=== PATIENT | male | born 1980 | race Caucasian/White ===

== ENCOUNTER 2020-10-26 16:02 | Outpatient (CLI) | payer MEDICAID, SELFPAY ==
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
== END 2020-10-26 16:03 | disposition home or self-care (01) ==
PROVIDERS: PCP Family Medicine; Visit Provider Nurse Practitioner Family
DX: M47.896 Other spondylosis, lumbar region (principal)
CPT/HCPCS: 72128; 72131

== ENCOUNTER 2020-11-17 11:13 | Emergency (ER) | payer MEDICAID, SELFPAY ==
[2020-11-17 11:33] VITALS: BP 161/100; PULSE 94; RESP 18; TEMP 36.2; O2SAT 96
[2020-11-17] MEDS: SODIUM CHLORIDE 0.9% IV 1,000 ML 999 ML IV CONT (13:07)
--- NOTE | 2020-11-17 13:08 | ED.WEAKNESS ---
HPI - Weakness General Chief complaint: Weakness Stated complaint: multiple complaints/pain/sores Time Seen by Provider: 11/17/20 12:54 Source: patient Mode of arrival: ambulatory Limitations: no limitations History of Present Illness HPI Narrative: Patient is a 40-year-old male complaining of generalized weakness, I am dehydrated that started approximately 3 days ago. Patient also complaining of pressure sores on his bilateral lower extremity that has been going on for the past 4 to 5 weeks, has seen his doctor for it. Patient states he just got a fdc. Patient denies any headache, chest pain, shortness of breath, abdominal pain, nausea, vomiting, diarrhea, fever or chills. Related Data Home Medications Medication Instructions Recorded Confirmed amlodipine 11/17/20 11/17/20 baclofen mg 11/17/20 buspirone mg 11/17/20 duloxetine mg PO 11/17/20 gabapentin 11/17/20 hydrocodone-acetaminophen 11/17/20 oxybutynin chloride 11/17/20 trazodone 11/17/20 Allergies Allergy/AdvReac Type Severity Reaction Status Date / Time Penicillins Allergy Unknown Unknown Verified 11/17/20 11:37 Review of Systems Review of Systems: All systems reviewed & are unremarkable except as noted in HPI and below Constitutional: Constitutional: Denies body ache(s), Denies chills, Denies excessive sweating, Denies fatigue, Denies fever(s), Denies headache(s), Denies lethargy, Denies malaise and Denies weight loss Eyes: Eyes: Denies blurry vision, Denies change in vision and Denies loss of vision ENT: Denies dizziness, Denies ear discharge, Denies headache(s), Denies lip swelling, Denies epistaxis, Denies nasal congestion, Denies neck pain, Denies throat swelling and Denies tongue swelling Cardiovascular: Cardiovascular: Denies chest pain, Denies chest pain at rest, Denies chest pain with activity, Denies diaphoresis, Denies rapid heart rate, Denies edema, Denies irregular heart rhythm, Denies lightheadedness, Denies palpitations, Denies dyspnea and Denies dyspnea on exertion Respiratory: Respiratory: Denies chest congestion, Denies cough, Denies hemoptysis, Denies dyspnea and Denies dyspnea on exertion Gastrointestinal: Gastrointestinal: Denies abdominal pain, Denies melena, Denies hematochezia, Denies diarrhea, Denies nausea, Denies vomiting and Denies hematemesis Musculoskeletal: Musculoskeletal: Denies abnormal gait, Denies deformity, Denies joint swelling, Denies limited range of motion, Denies neck pain and Denies numbness Neurologic: Denies Abnormal speech present, Denies abnormal gait, Denies confusion, Denies dizziness, Denies headache(s), Denies focal weakness, Denies loss of vision, Denies numbness, Denies Other visual disturbances and Denies Sensory deficit (Neuro) Psychiatric: Psychiatric: Denies confusion, Denies depression, Denies auditory hallucinations, Denies homicidal ideation and Denies suicidal ideation Endocrine: Endocrine: Denies cold intolerance, Denies excessive sweating, Denies fatigue, Denies heat intolerance and Denies palpitations Hematologic/Lymphatic: Hematologic/Lymphatic: Denies easy bleeding and Denies easy bruising Allergic/Immunologic: Allergic/Immunologic: Denies lip swelling, Denies throat swelling and Denies tongue swelling PMFSH Social History Social History Smoking status: Smoker, status unknown Alcohol intake: current Gender identity (if verbalized by the patient): Male Comments Past medical history: Hypertension, hepatitis C, chronic pain Family history: Noncontributory Social history: Smoker, occasional EtOH use, no drug use Exam Const: General: cooperative, comfortable, no acute distress, well developed, alert and awake; No confusion Orientation/consciousness: oriented to person, oriented to place, oriented to time, patient oriented x3 and No confusion Limitations: no limitations HENMT: Head: normal to inspection, normocephalic
[2020-11-17 13:15] LABS: Basophils Percent Auto 0.3 % (0.2-1.2); Eosinophils Absolute Auto 0.1 K/mm3 (0-0.3); Eosinophils Percent Auto 0.5 % (0-4.4); Hematocrit 54.6 % (42.0-52.0); Hemoglobin 18.4 g/dL (14.0-18.0); Immature Granulocyte Absolute 0.05 K/mm3 (0.00-0.031); Immature Granulocyte Percent A 0.5 % (0-0.5); Lymphocytes Percent Auto 18.1 % (18.3-44.2); Mean Corpuscular HGB Conc 33.7 g/dl (32-36); Mean Corpuscular Hemoglobin 29.4 pg (26-34); Mean Corpuscular Volume 87.2 fl (80-100); Mean Platelet Volume 9.7 fl (7.4-10.4); Monocytes Absolute Auto 0.8 K/mm3 (0.1-0.6); Monocytes Percent Auto 8.7 % (2.6-8.5); Neutrophils Absolute Auto 6.7 K/mm3 (1.3-6.7); Neutrophils Percent Auto 71.9 % (45.5-73.1); Platelet Count Result 289 k/mm3 (150-375); Red Blood Count 6.26 M/mm3 (4.6-6.20); Red Cell Distribution Width 13.2 % (11.5-14.5); White Blood Count 9.4 K/mm3 (4.5-10.0)
[2020-11-17 13:29] LABS: Alanine Aminotransferase 77 U/L (4-50); Albumin Level 4.6 g/dL (3.5-5.1); Alkaline Phosphatase 85 U/L (38-126); Anion Gap 10 mmol/L (8-16); Aspartate Amino Transferase 61 U/L (17-59); Bilirubin,Total 0.9 mg/dL (0.2-1.3); Blood Urea Nitrogen 11 mg/dL (9-20); Calcium 9.8 mg/dL (8.4-10.2); Carbon Dioxide 25 mmol/L (22-30); Chloride 104 mmol/L (98-107); Estimated Glomerular Filt Rate > 60; Glucose 94 mg/dL (75-110); Potassium 4.3 mmol/L (3.4-5.0); Sodium 139 mmol/L (137-145)
[2020-11-17] MEDS: KETOROLAC 30 MG/ML VIAL (*BKC) IV PUSH (15:50)
[2020-11-17 15:56] VITALS: BP 157/90; PULSE 90; RESP 18; TEMP 36.9; O2SAT 100
== END 2020-11-17 15:57 | disposition home or self-care (01) ==
PROVIDERS: Emergency Provider Emergency Medicine
DX: E86.0 Dehydration (principal); L98.8 Other specified disorders of the skin and subcutaneous tissue; I10 Essential (primary) hypertension; G89.29 Other chronic pain; Z86.19 Personal history of other infectious and parasitic diseases
CPT/HCPCS: 36415; 80053; 85025; 96361; 96374; 99284; J1885; J7030

== ENCOUNTER 2020-11-19 15:33 | Inpatient (IN) | payer MEDICARE, MEDICAID, SELFPAY ==
[2020-11-19] VITALS (40 sets, daily range): BP systolic 114–179; BP diastolic 73–109; PULSE 112–146; RESP 0–42; TEMP 36.9–38.3; O2SAT 94–100; BMI 24.8
--- NOTE | ~2020-11-19 | XR_ITS ---
EXAMINATION: XR chest 1V portable INDICATION: Fever TECHNIQUE: Portable AP chest at 1723 hours COMPARISON: 05/22/2011 FINDINGS: The lungs are free of acute opacities. There is no pleural effusion or pneumothorax. The ca rdiomediastinal silhouette is normal. The visualized osseous structures are unremarkable. IMPRESSION: 1. No acute cardiopulmonary abnormality. Reviewed, dictated and finalized at location B.
--- NOTE | ~2020-11-19 | US_ITS ---
EXAMINATION: US abdomen limited EXAM DATE: 11/23/2020 11:39 INDICATION: Elevated liver enzymes and Hepatitis C viral load. TECHNIQUE: Multiple grayscale and Doppler images of the abdomen right upper quadrant were obtained (b y a technologist who performed the scan) and subsequently reviewed. There is no prior study for [place]. FINDINGS: The pancreatic head and body are normal in appearance. The pancreatic tail is not visualized. The l iver has normal echogenicity and contour. There are no focal liver lesions identified. There is no evidence of intrahepatic biliary duct dilation. Portal venous flow was seen in the hepatopedal, nor mal direction and has normal Doppler waveform. No right-sided hydronephrosis. Common bile duct measures 4 mm, which is normal. The gallbladder wall is normal in thickness, with ex pected amount of distention. No sonographic evidence of pericholecystic fluid. There is no cholelit hiases. Technologist performing exam reports patient did not demonstrate sonographic Cruz's sign. Please note that this sign is less reliable in patients who have received pain medication. IMPRESSION: 1. Unremarkable abdominal ultrasound exam. Reviewed, dictated and finalized at location A.
--- NOTE | ~2020-11-19 | CT_ITS ---
EXAMINATION: CT brain wo con DATE: 11/19/2020 20:22 INDICATION: Altered mental state TECHNIQUE: Computed tomography (CT) of the head was performed without intravenous contrast. The mA wa s adjusted according to patient size. Iterative reconstruction technique was employed. Exam dose: 60 5.33 mGy-cm total exam DLP. COMPARISON: None FINDINGS: No intracranial mass lesion or hemorrhage or cerebrovascular accident is evident. There is no midline shift or mass effect effect. Normal ventricular size. Normal patterson-white matter differentiation. No subdural or epidural hematoma is detected. No fracture or bone destruction of the cranial vault. Included paranasal sinuses and mastoid air cells are normally developed and aerated. IMPRESSION: No significant abnormality Reviewed, dictated and finalized at Location A. Reviewed, dictated and finalized at location A. IMPRESSION: No significant abnormality
--- NOTE | 2020-11-19 15:35 | ECG_ITS ---
Measurements Intervals [place] Rate: 140 P: 79 LA: 127 QRS: 63 QRSD: 94 T: 50 QT: 287 QTc: 439 Interpretive Statements SINUS TACHYCARDIA DELAYED PRECORDIAL R/S TRANSITION BASELINE ARTIFACT- II, III, AVR, AVF, V1, V4-V6 ABNORMAL ECG Electronically Signed On 11-19-2020 15:57:44 CDT by Steve Boyle D.O.
[2020-11-19 15:57] LABS: Glucose Point of Care 84 (65-105)
[2020-11-19 16:09] LABS: Basophils Absolute Auto 0.1 K/mm3 (0.0-0.1); Basophils Percent Auto 0.4 % (0.2-1.2); Eosinophils Percent Auto 0.2 % (0-4.4); Hematocrit 48.4 % (42.0-52.0); Hemoglobin 16.8 g/dL (14.0-18.0); Immature Granulocyte Absolute 0.05 K/mm3 (0.00-0.031); Immature Granulocyte Percent A 0.4 % (0-0.5); Lymphocytes Absolute Auto 1.49 K/mm3 (0.9-3.2); Lymphocytes Percent Auto 10.9 % (18.3-44.2); Mean Corpuscular HGB Conc 34.7 g/dl (32-36); Mean Corpuscular Hemoglobin 29.2 pg (26-34); Mean Corpuscular Volume 84.2 fl (80-100); Mean Platelet Volume 10.3 fl (7.4-10.4); Monocytes Absolute Auto 1.2 K/mm3 (0.1-0.6); Neutrophils Absolute Auto 10.8 K/mm3 (1.3-6.7); Neutrophils Percent Auto 79.1 % (45.5-73.1); Platelet Count Result 312 k/mm3 (150-375); Red Blood Count 5.75 M/mm3 (4.6-6.20); Red Cell Distribution Width 12.8 % (11.5-14.5); White Blood Count 13.6 K/mm3 (4.5-10.0)
[2020-11-19 16:29] LABS: Alanine Aminotransferase 91 U/L (4-50); Albumin Level 4.6 g/dL (3.5-5.1); Alkaline Phosphatase 73 U/L (38-126); Anion Gap 11 mmol/L (8-16); Aspartate Amino Transferase 145 U/L (17-59); Bilirubin,Total 1.4 mg/dL (0.2-1.3); Blood Urea Nitrogen 24 mg/dL (9-20); Calcium 9.6 mg/dL (8.4-10.2); Carbon Dioxide 22 mmol/L (22-30); Chloride 105 mmol/L (98-107); Estimated Glomerular Filt Rate > 60; Glucose 81 mg/dL (75-110); Potassium 4.6 mmol/L (3.4-5.0); Sodium 138 mmol/L (137-145)
[2020-11-19] MEDS: LORazepam INJ (*CRX) 2 MG/ML VIAL IV PUSH (16:30)
--- NOTE | 2020-11-19 16:41 | ED.GENADULT ---
HPI - General Adult General Chief complaint: Altered Mental Status Stated complaint: combative Time Seen by Provider: 11/19/20 16:04 Source: EMS History of Present Illness HPI narrative: Patient is a 40 y/o male brought in by EMS for altered mental status. Patient is reportedly confused and combative. EMS reports that patient may have used Meth and Marijuana. Patient is unable to provide addtional history. Related Data Home Medications Medication Instructions Recorded Confirmed amlodipine 11/17/20 11/17/20 baclofen mg 11/17/20 buspirone mg 11/17/20 duloxetine mg PO 11/17/20 gabapentin 11/17/20 hydrocodone-acetaminophen 11/17/20 oxybutynin chloride 11/17/20 trazodone 11/17/20 Allergies Allergy/AdvReac Type Severity Reaction Status Date / Time Penicillins Allergy Unknown Unknown Verified 11/17/20 11:37 Review of Systems Review of Systems: ROS unobtainable: Yes unobtainable due to mental status PMFSH Social History Social History Smoking status: Smoker, status unknown Alcohol intake: current Gender identity (if verbalized by the patient): Male Exam Const: General: no acute distress and well developed Orientation/consciousness: confusion and Other orientation findings (agitated) HENMT: Head: normocephalic Ears: external ears normal General nose exam: Normal external nose present Eyes: General: appearance normal, both eyes and all related structures Conjunctivae: conjunctivae normal Neck: Neck: normal visual inspection and full ROM Chest: Chest palpation & inspection: normal inspection of the chest and no tenderness Resp: Effort & Inspection: normal respiratory effort Auscultation: clear to auscultation bilaterally Cardio: Rate: tachycardic Rhythm: regular rhythm GI: GI Palp: No abdominal tenderness and Yes Soft to palpation Skin: General skin exam: normal color and turgor normal Lesions: lesion noted (multiple sores on legs likely self inflicated) Neuro: General: confusion Cognition (Neuro): abnormal cognition Motor exam (neuro): Other motor observations present (paraplegic) Extrem: General: normal to inspection, full ROM and no pedal edema Psych: Appearance: grossly normal Affect: Labile affect present and Anxious affect present Course Reevaluation(s) Reevaluation #1: Rechecked. Patient is more awake. He is answering questions appropriately. Date: 11/19/20 Time: 21:30 Consultations Consultation #1: Discussed with COMMERCIAL INTELLIGENCE MANAGER Lissa, who agrees to admit. Date: 11/19/20 Time: 21:01 Vital Signs Vital signs: Vital Signs Temperature 38.3 C H 11/19/20 15:36 Pulse Rate 138 H 11/19/20 15:36 Respiratory Rate 18 11/19/20 15:36 Blood Pressure 133/96 H 11/19/20 15:36 Pulse Oximetry 100 11/19/20 15:36 Temperature 37.2 C 11/19/20 21:16 Pulse Rate 112 H 11/19/20 21:16 Respiratory Rate 14 11/19/20 21:16 Blood Pressure 148/89 H 11/19/20 21:16 Pulse Oximetry 98 11/19/20 21:16 Medical Decision Making Vital Signs Vital Signs: Vital Signs Temperature 38.3 C H 11/19/20 15:36 Pulse Rate 138 H 11/19/20 15:36 Respiratory Rate 18 11/19/20 15:36 Blood Pressure 133/96 H 11/19/20 15:36 Pulse Oximetry 100 11/19/20 15:36 Temperature 37.2 C 11/19/20 21:16 Pulse Rate 112 H 11/19/20 21:16 Respiratory Rate 14 11/19/20 21:16 Blood Pressure 148/89 H 11/19/20 21:16 Pulse Oximetry 98 11/19/20 21:16 Lab Data Result diagrams: 11/19/20 16:00 11/19/20 16:00 Labs: Lab Results 11/19/20 11/19/20 11/19/20 Range/Units 15:55 16:00 16:00 WBC 13.6 H (4.5-10.0) K/mm3 RBC 5.75 (4.6-6.20) M/mm3 Hgb 16.8 (14.0-18.0) g/dL Hct 48.4 (42.0-52.0) % MCV 84.2 (80-100) fl MCH 29.2 (26-34) pg MCHC 34.7 (32-36) g/dl RDW 12.8 (11.5-14.5) % Plt Count 312 (150-375) k/mm3 MPV 10.3 (7.4-10.4) fl Immature Gran % (Auto) 0.4
[2020-11-19 16:54] LABS: Add Urine Microscopic? YES; Appearance Urine Cloudy (Clear); Bilirubin Urine Negative (Negative); Blood Urine Negative (Negative); Color Urine Amber (Yellow); Glucose Urine UA Negative (Negative); Ketones Urine 1+ mg/dL (Negative); Leukocyte Esterase Ur Negative LEU/UL (Negative); Nitrate Urine Negative (Negative); Protein Urine 2+ mg/dL (Negative); Specific Grav Ur 1.026 (1.001-1.035); Urobilinogen Urine Negative mg/dL (<2.0)
[2020-11-19] MEDS: KETAMINE HCL (*CRX) 500 MG/10 ML VIAL 80 MG IV PUSH (16:56)
[2020-11-19 16:58] LABS: Barbiturate Screen Urine Negative (Negative); Benzodiazepines Screen Urine Negative (Negative)
[2020-11-19 17:09] LABS: Cannabinoid Screen Urine Positive (Negative); Cocaine Screen Urine Positive (Negative); Methadone Screen Urine Negative (Negative); Opiate Screen Urine Negative (Negative); Phencyclidine Screen Urine Negative (Negative)
[2020-11-19 17:12] LABS: Squamous Epithelial Cell Urine Few /hpf (Few)
[2020-11-19 17:13] LABS: Ethanol < 10 mg/dL (<10)
[2020-11-19 17:13] LABS: Amorphous Sediment Urine Few; Bacteria Urine Trace /hpf
[2020-11-19 17:20] LABS: INR 0.9; Prothrombin Time 12.5 Seconds (11.1-14.7)
[2020-11-19 17:21] LABS: Partial Thromboplastin Time 25.4 SECONDS (22.3-36.8)
--- NOTE | 2020-11-19 18:20 | PC.NURSE ---
At the 1814 restraint check patient was repositioned in the bed. This was done with assistance x5. Patient remained combative with the staff during repositioning. At this time, each restraint was loosened and replaced to ensure comfort and proper circulation was maintained.
[2020-11-19 18:36] LABS: Ammonia < 9 umol/L (9-30)
[2020-11-19 18:50] LABS: Lactic Acid Reflex 1.9 mmol/L (0.7-2.1)
[2020-11-19] MEDS: ETOMIDATE 20 MG/10 ML AMPUL 15 MG IV PUSH (20:00)
[2020-11-19 21:12] LABS: Base Excess ABG -4.5 mEq/l (+/-2.0); Fractional Inspired Oxygen 21 %; HCO3 ABG 21.1 mEq/l (22.0-26.0); Oxygen Content ABG 22.3 %vol (16.0-22.0); Oxygen Saturation ABG 97.5 % (95.0-100.0); Oxyhemoglobin 95.7 % THb (90.0-100.0); PCO2 ABG 40.5 mmHg (35.0-45.0); PO2 ABG 105.8 mmHg (80.0-100.0); PO2 FiO2 Ratio Arterial Blood 5.04 %; Total Hemoglobin 16.5 g/dL (12.0-18.0); pH ABG 7.334 (7.350-7.450)
[2020-11-19 21:13] LABS: Device ROOM AIR; Modified Allen's Test Pass; Site Drawn LEFT RADIAL
--- NOTE | 2020-11-19 23:10 | ADMGEN ---
This patient, Narciso Khalil, was admitted to Intensive Care Unit-1. Patient/family oriented to hospital policies and general routines including ID bracelet, bed and alarms, visiting hours, pain management, procedures, bathroom and other care routines, personal items, smoking policy, room service/diet, and visiting hours. Information on how to activate the Rapid Response Team has been discussed. Patient/Family are encouraged to report perceived risks to care and to ask questions if they do not understand what they are told or what they should do.
[2020-11-19] MEDS: LORazepam INJ (*CRX) 2 MG/ML VIAL 1 MG IV PUSH (23:20)
[2020-11-19] MEDS: OLANZapine 10 MG INJ VIAL 5 MG IM (23:39)
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
[2020-11-20] VITALS (21 sets, daily range): BP systolic 89–139; BP diastolic 55–87; PULSE 75–126; RESP 18–34; TEMP 35.8–37.4; O2SAT 95–100; BMI 24.8; BMI 24.9
--- NOTE | 2020-11-20 | ECHO_ITS ---
Patient Info Name: Narciso Khalil Age: 40 years : 1980 Gender: Male Ht: 71 in Wt: 178 lbs BSA: 2.02 m2 HR: 114 bpm BP: 120 / 73 mmHg Technical Quality: Good Exam Date: 11/20/2020 10:11 AM Exam Location: [facility] Patient Status: Inpatient Admit Date: 11/19/2020 Staff Ordering Physician: Lissa Sharp NP Yarn Tester: Fei Cruz RDCS, RT Attending Provider: José Miguel Rose MD Referring Physician: Aron ISSA; Exam Type: CA echo doppler color flow Study Info Indications I52 - Other heart disorders in diseases classified elsewhere Complete two-dimensional, color flow and Doppler transthoracic echocardiogram is performed. Summary 1. Complete two-dimensional, color flow and Doppler transthoracic echocardiogram is performed. 2. Suboptimal image quality, poor echocardiographic windows. Normal LV size and wall thickness. Hyperdynamic LV systolic function, EF more than 70%. Indeterminate diastolic function. Valves are not well visualized, no aortic stenosis by Doppler. Left Ventricle Left ventricular chamber dimension is normal. Left ventricular systolic function is hyperdynamic, estimated at >70%. There is no increased left ventricular wall thickness. The left ventricular diastolic function is indeterminate. Right Ventricle Right ventricular chamber dimension is normal. Right ventricular systolic function is normal. Left Atria Left atrial chamber dimension is normal. Right Atria Right atrial chamber dimension is normal. Aortic Valve The aortic valve is not well visualized. There is no aortic valve stenosis. Pulmonic Valve The pulmonic valve is not well visualized. Mitral Valve The mitral valve has not well visualized. Tricuspid Valve The tricuspid valve leaflets are not well visualized. Pericardium/Pleural The pericardium appears normal. Aorta The aortic root size at the sinus of Valsalva is not well visualized. Left Ventricular Outflow Tract Name Value Normal LVOT Doppler LVOT Peak Velocity 85 cm/s LVOT Peak Gradient 3 mmHg LVOT Mean Gradient 2 mmHg LVOT VTI 15 cm LVOT VTI/AV VTI Ratio 0.9 Mitral Valve Name Value Normal MV Doppler MV Decel [place] 362 cm/s2 MV PHT 43 ms MV Area (PHT) 5.2 cm2 4.0-5.0 MV Diastolic Function MV E Peak Velocity 53 cm/s MV A Peak Velocity 66 cm/s MV E/A 0.8 MV Decel Time 147 ms MV Annular TDI MV Septal e' Velocity 10.0 cm/s >=8.0 MV E/e' (Septal)
[2020-11-20] MEDS: LORazepam INJ (*CRX) 2 MG/ML VIAL 1 MG IV PUSH ×2 (00:49→10:24)
[2020-11-20] MEDS: SODIUM CHLORIDE 0.9% IV 1,000 ML 125 ML IV CONT ×3 (01:39→23:34)
[2020-11-20 04:40] LABS: Basophils Percent Auto 0.4 % (0.2-1.2); Eosinophils Absolute Auto 0.1 K/mm3 (0-0.3); Eosinophils Percent Auto 0.5 % (0-4.4); Hematocrit 44.1 % (42.0-52.0); Hemoglobin 14.9 g/dL (14.0-18.0); Immature Granulocyte Absolute 0.03 K/mm3 (0.00-0.031); Immature Granulocyte Percent A 0.3 % (0-0.5); Lymphocytes Absolute Auto 1.58 K/mm3 (0.9-3.2); Lymphocytes Percent Auto 17.4 % (18.3-44.2); Mean Corpuscular HGB Conc 33.8 g/dl (32-36); Mean Corpuscular Hemoglobin 29.4 pg (26-34); Mean Platelet Volume 10.1 fl (7.4-10.4); Monocytes Absolute Auto 0.9 K/mm3 (0.1-0.6); Monocytes Percent Auto 9.6 % (2.6-8.5); Neutrophils Absolute Auto 6.5 K/mm3 (1.3-6.7); Neutrophils Percent Auto 71.8 % (45.5-73.1); Platelet Count Result 216 k/mm3 (150-375); Red Blood Count 5.07 M/mm3 (4.6-6.20); Red Cell Distribution Width 13.2 % (11.5-14.5); White Blood Count 9.1 K/mm3 (4.5-10.0)
[2020-11-20 04:59] LABS: Alanine Aminotransferase 93 U/L (4-50); Albumin Level 3.7 g/dL (3.5-5.1); Alkaline Phosphatase 59 U/L (38-126); Anion Gap 4 mmol/L (8-16); Aspartate Amino Transferase 243 U/L (17-59); Bilirubin,Total 0.9 mg/dL (0.2-1.3); Blood Urea Nitrogen 20 mg/dL (9-20); CRP 1.6 mg/dL (<1.0); Calcium 8.5 mg/dL (8.4-10.2); Carbon Dioxide 26 mmol/L (22-30); Chloride 108 mmol/L (98-107); Estimated CRCL calculation 147 ml/min; Estimated Glomerular Filt Rate > 60; Glucose 84 mg/dL (75-110); Lipase 17 U/L (23-300); Potassium 3.8 mmol/L (3.4-5.0); Sodium 138 mmol/L (137-145)
[2020-11-20 06:10] LABS: Lactate Dehydrogenase 2258 U/L (313-618)
[2020-11-20 06:13] LABS: Hepatitis B Surface Antigen Negative (Negative)
[2020-11-20 06:19] LABS: HAV RESULT Negative (Negative); Hepatitis B Core IgM Result Negative (Negative)
[2020-11-20 06:33] LABS: Hepatitis C Virus Antibody Reactive (Negative)
[2020-11-20 06:45] LABS: Rapid Plasma Reagin Non-Reactive (NonReactive)
[2020-11-20] MEDS: HYDROcodone/acetaminophen (*CRX) 5-325 MG TABLET 1 TAB PO ×2 (08:40→13:23)
[2020-11-20] MEDS: LIDOCAINE HCL 1% PF INJ 5 ML VIAL INFILTRATE (09:40)
[2020-11-20] MEDS: ENOXAPARIN 40 MG/0.4 ML SYRINGE SUB-Q (10:26)
[2020-11-20] MEDS: DULoxetine HCL 60 MG CAPSULE.DR PO ×2 (10:27→17:40)
[2020-11-20] MEDS: OXYBUTYNIN CHLORIDE 5 MG TABLET PO ×3 (10:27→17:40)
[2020-11-20] MEDS: GABAPENTIN 300 MG CAPSULE 600 MG PO ×3 (10:27→17:40)
[2020-11-20] MEDS: busPIRone HCL 10 MG TABLET 30 MG PO ×2 (10:28→17:40)
--- NOTE | 2020-11-20 11:10 | PC.NURSE ---
Updated mother on plan of care. States she does not want to see him at the moment. Very upset with him. Will send his belongings tomorrow.
--- NOTE | 2020-11-20 13:00 | PC.NURSE ---
Patient agitated pulling off equipment, Dr Esparza notified, Zyppreciousa ordered.
[2020-11-20] MEDS: OLANZapine 10 MG INJ VIAL 5 MG IM (13:20)
[2020-11-20] MEDS: CENTRAL LINE FLUSH 10 ML IV PUSH ×2 (13:28→20:00)
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
--- NOTE | 2020-11-20 14:39 | WPDINFPN2 ---
Progress Note: A&P Assessment and Plan (1) Fever: Code(s): R50.9 - Fever, unspecified Status: Acute Assessment and Plan: 1.Fever, no source yet identified 2. Penile Ulcer. REC Cultures in process as is serologies. No empiric antibiotics, call if + micro or Qs Subjective Date/time seen: 11/20/20 14:39 Objective Data Vital Signs Vital Signs: Vital Signs - 24 hr 11/19/20 15:36 11/19/20 16:42 11/19/20 16:57 Temperature 38.3 C H 37.6 C Pulse Rate 138 H 146 H 141 H Respiratory Rate 18 36 H 29 H Blood Pressure 133/96 H 138/94 H 121/95 H Pulse Oximetry 100 94 94 11/19/20 17:16 11/19/20 17:17 11/19/20 17:24 Temperature 36.9 C Pulse Rate 144 H 142 H Respiratory Rate 38 H 25 H Blood Pressure 114/84 Pulse Oximetry 98 98 11/19/20 17:30 11/19/20 17:31 11/19/20 17:45 Temperature Pulse Rate 142 H 141 H 140 H Respiratory Rate 30 H 36 H 26 H Blood Pressure 133/80 Pulse Oximetry 98 98 98 11/19/20 17:46 11/19/20 18:00 11/19/20 18:01 Temperature Pulse Rate 141 H 141 H 139 H Respiratory Rate 24 H 18 21 H Blood Pressure 135/106 H 125/109 H Pulse Oximetry 97 98 98 11/19/20 18:15 11/19/20 18:26 11/19/20 18:30 Temperature Pulse Rate 143 H 136 H Respiratory Rate 25 H 19 Blood Pressure 160/74 H Pulse Oximetry 98 98 97 11/19/20 18:31 11/19/20 18:45 11/19/20 18:46 Temperature Pulse Rate 134 H 130 H 129 H Respiratory Rate 13 40 H 40 H Blood Pressure 179/102 H 156/92 H Pulse Oximetry 98 98 98 11/19/20 19:00 11/19/20 19:01 11/19/20 19:15 Temperature Pulse Rate 129 H 129 H 129 H Respiratory Rate 41 H 42 H 42 H Blood Pressure 161/87 H Pulse Oximetry 98 98 98 11/19/20 19:16 11/19/20 19:30 11/19/20 19:31 Temperature Pulse Rate 130 H 130 H 130 H Respiratory Rate 37 H 39 H 41 H Blood Pressure 151/92 H 164/90 H Pulse Oximetry 98 98 98 11/19/20 19:45 11/19/20 19:46 11/19/20 20:00 Temperature Pulse Rate 128 H 127 H 124 H Respiratory Rate 35 H 38 H 36 H Blood Pressure 157/93 H Pulse Oximetry 98 98 98 11/19/20 20:01 11/19/20 20:23 11/19/20 20:25 Temperature Pulse Rate 123 H 117 H Respiratory Rate 40 H 0 L Blood Pressure 154/89 H 150/83 H Pulse Oximetry 98 98 99 11/19/20 20:30 11/19/20 20:31 11/19/20 20:32 Temperature Pulse Rate 117 H 116 H 117 H Respiratory Rate 11 L 0 L Blood Pressure 143/73 H Pulse Oximetry 99 99 99 11/19/20 20:45 11/19/20 20:46 11/19/20 21:00 Temperature Pulse Rate 114 H 115 H 114 H Respiratory Rate 33 H 38 H Blood Pressure 141/89 H Pulse Oximetry 99 99 99 11/19/20 21:01 11/19/20 21:15 11/19/20 21:16 Temperature 37.2 C Pulse Rate 114 H 115 H 112 H Respiratory Rate 27 H 14 14 Blood Pressure 137/85 148/89 H Pulse Oximetry 99 98 98 11/19/20 23:20 11/20/20 00:00 11/20/20 00:10 Temperature 37.4 C Pulse Rate 137 H 120 H 120 H Respiratory Rate 39 H 34 H 34 H Blood Pressure 139/87 Pulse Oximetry 99 98 98 11/20/20 00:11 11/20/20 02:00 11/20/20 02:20 Temperature 37.4 C Pulse Rate 120 H 105 H Respiratory Rate 34 H Blood Pressure 139/87 Pulse Oximetry 98 11/20/20 03:35 11/20/20 04:00 11/20/20 06:00 Temperature 36.1 C L Pulse Rate 101 H 99 95 Respiratory Rate 25 H 24 H Blood Pressure 120/73 Pulse Oximetry 99 99 11/20/20 07:48 11/20/20 08:00 11/20/20 10:00 Temperature 35.8 C L Pulse Rate 95 101 H 115 H Respiratory Rate 24 H 19 Blood Pressure 119/78 Pulse Oximetry 99 100 11/20/20 12:00 11/20/20 14:00 Temperature 36.4 C L Pulse Rate 126 H 96 Respiratory Rate 21 H Blood Pressure 125/80 Pulse Oximetry 100 Intake/Output Intake/Output: Intake & Output 11/17/20 11/18/20 11/19/20 11/20/20 23:59 23:59 23:59 23:59 Intake Total 150 1400 Output Total 140 200 Balance 10 1200 Meds/Results Medications: Active Medications Generic Name Dose Route Start Last Admin Trade Name Freq PRN Reason Stop Dose Ad
[2020-11-20] MEDS: SILVERGEL (ELTA) 45 ML 1 APPLIC TOPICAL (15:12)
[2020-11-20] MEDS: NICOTINE (*PBKC) 14 MG PATCH 1 PATCH TRANSDERM (15:42)
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
[2020-11-20] MEDS: chlordiazePOXIDE (*CRX) 25 MG CAPSULE PO ×2 (17:44→23:34)
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
[2020-11-20] MEDS: HYDROcodone/acetaminophen (*CRX) 7.5-325 MG TABLET 1 TAB PO (23:34)
[2020-11-21] VITALS (12 sets, daily range): BP systolic 90–117; BP diastolic 53–72; PULSE 72–104; RESP 13–25; TEMP 36.4–36.9; O2SAT 95–100
[2020-11-21] MEDS: CENTRAL LINE FLUSH 10 ML IV PUSH ×2 (05:33→14:58)
[2020-11-21] MEDS: HYDROcodone/acetaminophen (*CRX) 7.5-325 MG TABLET 1 TAB PO ×3 (06:21→17:07)
[2020-11-21] MEDS: chlordiazePOXIDE (*CRX) 25 MG CAPSULE PO ×2 (06:21→11:57)
--- NOTE | 2020-11-21 08:45 | WPDCDIQUERY2 ---
CDI Query Clarification Request -Sepsis has been documented -Dr Aguillon documented febrile illness without infection evident and resolved -Dr Esparza documented, patient was seen by Dr. aguillon does not suspect any acute infection and stop the antibiotic -Infection or suspected infection must be present for sepsis If no infection is identified/suspected, please clarify if sepsis was ruled in or ruled out. <Kelley Magana RN - Last Filed: 11/21/20 09:05>
[2020-11-21] MEDS: GABAPENTIN 300 MG CAPSULE 600 MG PO ×3 (09:28→17:05)
[2020-11-21] MEDS: DULoxetine HCL 60 MG CAPSULE.DR PO ×2 (09:28→17:06)
[2020-11-21] MEDS: NICOTINE (*PBKC) 14 MG PATCH 1 PATCH TRANSDERM (09:28)
[2020-11-21] MEDS: busPIRone HCL 10 MG TABLET 30 MG PO ×2 (09:28→17:05)
[2020-11-21] MEDS: ENOXAPARIN 40 MG/0.4 ML SYRINGE SUB-Q (09:28)
[2020-11-21] MEDS: OXYBUTYNIN CHLORIDE 5 MG TABLET PO ×3 (09:29→17:05)
[2020-11-21] MEDS: SILVERGEL (ELTA) 45 ML 1 APPLIC TOPICAL (09:29)
[2020-11-21 09:47] LABS: Hematocrit 41.6 % (42.0-52.0); Hemoglobin 13.8 g/dL (14.0-18.0); Mean Corpuscular HGB Conc 33.2 g/dl (32-36); Mean Corpuscular Hemoglobin 29.4 pg (26-34); Mean Corpuscular Volume 88.5 fl (80-100); Mean Platelet Volume 10.3 fl (7.4-10.4); Platelet Count Result 170 k/mm3 (150-375); White Blood Count 4.5 K/mm3 (4.5-10.0)
[2020-11-21 10:04] LABS: Alanine Aminotransferase 92 U/L (4-50); Albumin Level 3.2 g/dL (3.5-5.1); Alkaline Phosphatase 52 U/L (38-126); Anion Gap 4 mmol/L (8-16); Aspartate Amino Transferase 164 U/L (17-59); Bilirubin,Total 0.4 mg/dL (0.2-1.3); Blood Urea Nitrogen 12 mg/dL (9-20); Calcium 8.3 mg/dL (8.4-10.2); Carbon Dioxide 26 mmol/L (22-30); Chloride 108 mmol/L (98-107); Estimated CRCL calculation 173 ml/min; Estimated Glomerular Filt Rate > 60; Glucose 62 mg/dL (75-110); Magnesium 1.8 mg/dL (1.6-2.3); Potassium 3.8 mmol/L (3.4-5.0); Sodium 138 mmol/L (137-145)
--- NOTE | 2020-11-21 11:22 | PCDIET ---
Nutrition Follow-Up Complete: Nutrition Diagnosis: Suboptimal oral intake related to altered mental status as evidenced by meal refusal. Nutrition Goal: Patient to consume 75% of meals or greater. Goal in progress. Intakes 0-100% on heart healthy diet with average of 50%. Spoke with patient after consuming 100% of breakfast meal today. Reports feeling better with good appetite. Stated, Food was great. Last recorded weight is 80.4 kg which is down from last review. +I/O. Will monitor. Bowel Motility: No documented BM as of yet. Labs Reviewed: Hgb (13.8), Hct (41.6), Cr (0.5), Alb (3.2), Karla Ca (8.94), Cl (108) Meds Noted: NS at 125mL/hr, [place] Additional Notes: Integumentary notes and wound nurse documentation reviewed. Will continue to monitor with same goal. Nutrition Monitoring and Evaluation: Follow up in 5 days.
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
[2020-11-21] MEDS: chlordiazePOXIDE (*CRX) 25 MG CAPSULE 50 MG PO (17:05)
--- NOTE | 2020-11-21 17:54 | PC.NURSE ---
This patient, Narciso Khalil, was transferred to [[facility] ] on 11/21/20 at 1754. Personal belongings sent with patient. Report given to [FELICE Berry [id number] ]. Appropriate documentation sent with patient.
--- NOTE | 2020-11-21 17:58 | PC.NURSE ---
This patient, Narciso Khalil, was received from [ ] on 11/21/20 at 1750. Patient/family oriented to unit policies and routines
[2020-11-22] VITALS: BP 148/68; PULSE 82; RESP 18; TEMP 36.3; O2SAT 94
[2020-11-22] MEDS: chlordiazePOXIDE (*CRX) 25 MG CAPSULE 50 MG PO ×4 (00:03→16:54)
[2020-11-22] MEDS: CENTRAL LINE FLUSH 10 ML IV PUSH ×3 (00:04→11:50)
[2020-11-22 05:36] LABS: Hematocrit 38.6 % (42.0-52.0); Hemoglobin 12.7 g/dL (14.0-18.0); Mean Corpuscular HGB Conc 32.9 g/dl (32-36); Mean Corpuscular Hemoglobin 29.1 pg (26-34); Mean Corpuscular Volume 88.3 fl (80-100); Mean Platelet Volume 10.7 fl (7.4-10.4); Platelet Count Result 165 k/mm3 (150-375); Red Blood Count 4.37 M/mm3 (4.6-6.20); Red Cell Distribution Width 12.8 % (11.5-14.5); White Blood Count 3.9 K/mm3 (4.5-10.0)
[2020-11-22 05:53] LABS: Alanine Aminotransferase 66 U/L (4-50); Albumin Level 2.9 g/dL (3.5-5.1); Alkaline Phosphatase 49 U/L (38-126); Anion Gap 0 mmol/L (8-16); Aspartate Amino Transferase 104 U/L (17-59); Bilirubin,Total 0.1 mg/dL (0.2-1.3); Blood Urea Nitrogen 14 mg/dL (9-20); Calcium 7.9 mg/dL (8.4-10.2); Carbon Dioxide 31 mmol/L (22-30); Chloride 106 mmol/L (98-107); Estimated CRCL calculation 210 ml/min; Estimated Glomerular Filt Rate > 60; Glucose 130 mg/dL (75-110); Magnesium 1.8 mg/dL (1.6-2.3); Potassium 3.5 mmol/L (3.4-5.0); Sodium 137 mmol/L (137-145)
[2020-11-22] MEDS: busPIRone HCL 10 MG TABLET 30 MG PO ×2 (08:30→16:54)
[2020-11-22] MEDS: DULoxetine HCL 60 MG CAPSULE.DR PO ×2 (08:30→16:54)
[2020-11-22] MEDS: OXYBUTYNIN CHLORIDE 5 MG TABLET PO ×3 (08:31→16:54)
[2020-11-22] MEDS: ENOXAPARIN 40 MG/0.4 ML SYRINGE SUB-Q (08:31)
[2020-11-22] MEDS: NICOTINE (*PBKC) 14 MG PATCH 1 PATCH TRANSDERM (08:31)
[2020-11-22] MEDS: SILVERGEL (ELTA) 45 ML 1 APPLIC TOPICAL (08:31)
[2020-11-22] MEDS: GABAPENTIN 300 MG CAPSULE 600 MG PO ×3 (08:31→16:54)
[2020-11-22] MEDS: HYDROcodone/acetaminophen (*CRX) 7.5-325 MG TABLET 1 TAB PO ×3 (08:40→22:35)
[2020-11-22 08:44] LABS: Herpes Simplex Type 1 DNA PCR Not Detected (Not Detected); Herpes Simplex Type 2 DNA PCR Not Detected (Not Detected)
[2020-11-22 14:00] VITALS: BP 110/62; PULSE 89; RESP 16; TEMP 36.4; O2SAT 99
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
[2020-11-22 17:48] LABS: Treponema pallidum Ab FTA ABS Nonreactive (Nonreactive)
[2020-11-22 22:00] VITALS: BP 124/67; PULSE 97; RESP 18; TEMP 36.1; O2SAT 98
[2020-11-23] MEDS: CENTRAL LINE FLUSH 10 ML IV PUSH ×2 (00:08→05:55)
[2020-11-23] MEDS: chlordiazePOXIDE (*CRX) 25 MG CAPSULE 50 MG PO ×3 (00:12→11:24)
[2020-11-23 03:58] LABS: Hematocrit 39.3 % (42.0-52.0); Hemoglobin 12.8 g/dL (14.0-18.0); Mean Corpuscular HGB Conc 32.6 g/dl (32-36); Mean Corpuscular Hemoglobin 29.4 pg (26-34); Mean Corpuscular Volume 90.3 fl (80-100); Mean Platelet Volume 10.5 fl (7.4-10.4); Platelet Count Result 160 k/mm3 (150-375); Red Blood Count 4.35 M/mm3 (4.6-6.20); Red Cell Distribution Width 12.7 % (11.5-14.5); White Blood Count 3.3 K/mm3 (4.5-10.0)
[2020-11-23 04:09] LABS: Alanine Aminotransferase 70 U/L (4-50); Alkaline Phosphatase 53 U/L (38-126); Anion Gap -1 mmol/L (8-16); Aspartate Amino Transferase 79 U/L (17-59); Bilirubin,Total < 0.1 mg/dL (0.2-1.3); Blood Urea Nitrogen 12 mg/dL (9-20); Calcium 8.1 mg/dL (8.4-10.2); Carbon Dioxide 33 mmol/L (22-30); Chloride 105 mmol/L (98-107); Estimated CRCL calculation 173 ml/min; Estimated Glomerular Filt Rate > 60; Glucose 99 mg/dL (75-110); Magnesium 1.7 mg/dL (1.6-2.3); Sodium 137 mmol/L (137-145)
[2020-11-23] MEDS: HYDROcodone/acetaminophen (*CRX) 7.5-325 MG TABLET 1 TAB PO ×2 (05:10→11:24)
[2020-11-23 06:00] VITALS: BP 160/52; PULSE 69; RESP 16; TEMP 36.3; O2SAT 97
[2020-11-23] MEDS: NICOTINE (*PBKC) 14 MG PATCH 1 PATCH TRANSDERM (09:31)
[2020-11-23] MEDS: SILVERGEL (ELTA) 45 ML 1 APPLIC TOPICAL (09:31)
[2020-11-23] MEDS: ENOXAPARIN 40 MG/0.4 ML SYRINGE SUB-Q (09:31)
[2020-11-23] MEDS: GABAPENTIN 300 MG CAPSULE 600 MG PO (11:23)
[2020-11-23] MEDS: DULoxetine HCL 60 MG CAPSULE.DR PO (11:23)
[2020-11-23] MEDS: busPIRone HCL 10 MG TABLET 30 MG PO (11:23)
[2020-11-23] MEDS: OXYBUTYNIN CHLORIDE 5 MG TABLET PO (11:23)
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
[2020-11-27 13:39] LABS: HIV DNA PCR (Qual) Not Detected (Not Detected)
== END 2020-11-23 14:45 | disposition home or self-care (01) | DRG 71 ==
LOC: ANHED 16:11 → ANHICU 23:32 → ANH3MEDSUR 11-21 18:32 → ANHICU 11-26 15:29
PROVIDERS: Emergency Medicine; Nurse Practitioner; Admitting Provider Family Medicine; Emergency Provider Emergency Medicine; Visit Provider Family Medicine
DX: G93.41 Metabolic encephalopathy (principal); L97.829 Non-pressure chronic ulcer of other part of left lower leg with unspecified severity; L97.819 Non-pressure chronic ulcer of other part of right lower leg with unspecified severity; G82.20 Paraplegia, unspecified; S24.154S Other incomplete lesion at T11-T12 level of thoracic spinal cord, sequela; W34.00XS Accidental discharge from unspecified firearms or gun, sequela; Y24.9XXS Unspecified firearm discharge, undetermined intent, sequela; B19.20 Unspecified viral hepatitis C without hepatic coma; Z18.89 Other specified retained foreign body fragments; N48.5 Ulcer of penis; R50.9 Fever, unspecified; F14.10 Cocaine abuse, uncomplicated; F12.10 Cannabis abuse, uncomplicated; F41.8 Other specified anxiety disorders
CPT/HCPCS: 36415; 36569; 36600; 51701; 70450; 71045; 76705; 80053; 80074; 80307; 81001; 82140; 82805; 82948; 83605; 83615; 83690; 83735; 85025; 85027; 85610; 85730; 86140; 86592; 86780; 87040; 87522; 87529; 87535; 93005; 93306; 96374; 96375; 97161; 97165; 99285; A9270; C1751; J0131; J0696; J1650; J2060; J3370; J7030

== ENCOUNTER 2020-12-29 06:41 | Inpatient (IN) | payer MEDICARE, MEDICAID, SELFPAY ==
[2020-12-29] VITALS (30 sets, daily range): BP systolic 93–125; BP diastolic 62–83; PULSE 98–148; RESP 20–34; TEMP 36–38; O2SAT 91–100; BMI 29.3
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
--- NOTE | ~2020-12-29 | XR_ITS ---
EXAMINATION: XR chest 1V portable INDICATION: Respiratory failure TECHNIQUE: Portable AP chest at zero 519, COMPARISON: 01/03/2020 FINDINGS: Diffuse airspace opacities persist but continue to improve in all lung zones except the lef t lung base. There is no pleural effusion or pneumothorax. The cardiomediastinal silhouette is normal . Again noted is a metallic density projecting over the midline upper abdomen. IMPRESSION: 1. Overall improved airspace opacities, consistent with atelectasis versus pneumonia. Reviewed, dictated and finalized at location A. IMPRESSION: 1. Overall improved airspace opacities, consistent with atelectasis versus pneu monia.
--- NOTE | ~2020-12-29 | XR_ITS ---
EXAMINATION: XR chest 1V portable INDICATION: Respiratory failure TECHNIQUE: Portable AP chest at 0523 hours COMPARISON: 12/30/2020 FINDINGS: The endotracheal and nasogastric tubes have been removed. Patchy bilateral airspace opaciti es persist but have improved. There is no pleural effusion or pneumothorax. The cardiomediastinal patrica houette is normal. IMPRESSION: 1. Diffuse lung disease with slight improvement, consistent with pneumonia and/or pulmonary edema. Reviewed, dictated and finalized at location A. IMPRESSION: 1. Diffuse lung disease with slight improvement, consistent with pneumonia and/ or pulmonary edema.
--- NOTE | ~2020-12-29 | XR_ITS ---
EXAMINATION: XR chest 1V portable INDICATION: Respiratory failure TECHNIQUE: Portable AP chest at 0533 hours COMPARISON: 01/01/2021 FINDINGS: Diffuse airspace opacities persist in all lung zones with slight improvement. There is no p leural effusion or pneumothorax. The cardiomediastinal silhouette is stable. A metallic density is ag ain seen projecting over the midline upper abdomen. IMPRESSION: 1. Improved airspace opacities, consistent with atelectasis versus pneumonia. Reviewed, dictated and finalized at location A.
--- NOTE | ~2020-12-29 | XR_ITS ---
EXAMINATION: XR chest ET placement DATE: 12/29/2020 07:55 INDICATION: Endotracheal tube placement TECHNIQUE: frontal view of the chest was obtained. COMPARISON: Chest radiograph dated 11/19/2020 FINDINGS: Endotracheal tube tip 4.5 cm above the hope. Nasogastric tube extends below the left hemidiaphragm with distal tip collimated off the study. New patchy airspace opacities in the right mid and upper lung zones. No pleural effusion or pneumotho rax. The cardiomediastinal silhouette is normal. IMPRESSION: 1. Patchy airspace opacities in the right mid and upper lung zones concerning for pneumonia and/or as piration. Reviewed, dictated and finalized at location A. IMPRESSION: 1. Patchy airspace opacities in the right mid and upper lung zones concerning f or pneumonia and/or aspiration.
--- NOTE | ~2020-12-29 | CT_ITS ---
EXAMINATION: CT cervical spine wo con DATE: 12/29/2020 08:34 INDICATION: Found unresponsive. Paraplegic TECHNIQUE: Computed tomography (CT) of the cervical spine was performed without intravenous contrast. Automated exposure control and iterative reconstruction technique were employed. The dose-length pro duct was 524.33 mGy-cm. COMPARISON: 05/22/2011 FINDINGS: Alignment is normal. Vertebral body heights are normal. No fracture. Moderate disc height loss at C5- C6 and C6-C7. Moderate to severe uncovertebral osteoarthritis and posterior disc osteophyte complexes result in mild central canal and bilateral neural foraminal stenosis at both of these levels. Partia lly visualized nasogastric and endotracheal tubes in expected positions. Groundglass opacities and pa tchy consolidation at the bilateral apices of lungs. IMPRESSION: 1. Moderate lower cervical spondylosis. No acute osseous abnormality. 2. Biapical lung disease which could represent pneumonia, aspiration, pulmonary edema or some combina tion thereof. Reviewed, dictated and finalized at location A. IMPRESSION: 1. Moderate lower cervical spondylosis. No acute osseous abnormality. 2. Biapical lung disease which could represent pneumonia, aspiration, pulmonary edema or some combination thereof.
--- NOTE | ~2020-12-29 | CT_ITS ---
EXAMINATION: CT brain wo con DATE: 12/29/2020 08:34 INDICATION: Found unresponsive TECHNIQUE: Computed tomography (CT) of the head was performed without intravenous contrast. Sagittal and coronal reconstructions were performed. The mA was adjusted according to patient size. Iterative reconstruction technique was employed. The dose-length product was 605.33 mGy-cm. COMPARISON: head CT dated 11/19/20 FINDINGS: Soft tissue swelling with subcutaneous hematoma centered at the right malar region with soft tissue s welling extending into the right preseptal soft tissues. Orbits are otherwise unremarkable with no po st septal inflammatory stranding consistent with intact appearing globes. No evident fracture the melissa varium or visualized maxillofacial bones. Mild mucosal thickening throughout the paranasal sinuses wi th small amount of fluid layering in the dependent right maxillary sinus. Small portion of an endotra cheal tube and nasogastric tube are seen in expected positions. No acute intracranial hemorrhage, acute infarction or abnormal extra axial fluid collection. Ventricl es are normal and symmetric. No mass/mass effect. The mastoid air cells and middle ear cavities are c lear. IMPRESSION: 1. Prominent right malar subcutaneous hematoma. No fracture or acute intracranial process. Reviewed, dictated and finalized at location A. IMPRESSION: 1. Prominent right malar subcutaneous hematoma. No fracture or acute intracrani al process.
--- NOTE | ~2020-12-29 | XR_ITS ---
EXAMINATION: XR chest 1V portable INDICATION: Respiratory failure TECHNIQUE: Portable AP chest at 0528 hours COMPARISON: 12/31/2020 FINDINGS: Left basilar airspace opacities persist without significant change. There are increasing op acities of the right lung. No definite pleural effusion or pneumothorax is identified. The cardiomedi astinal silhouette is normal. A metallic density projects over the midline upper abdomen. IMPRESSION: 1. Stable left basilar airspace opacity slight worsening of opacities throughout the right lung, cons istent with atelectasis versus pneumonia. Reviewed, dictated and finalized at location A. IMPRESSION: 1. Stable left basilar airspace opacity slight worsening of opacities throughou t the right lung, consistent with atelectasis versus pneumonia.
--- NOTE | 2020-12-29 06:58 | ECG_ITS ---
Measurements Intervals [place] Rate: 119 P: 78 PA: 145 QRS: 76 QRSD: 102 T: 23 QT: 314 QTc: 442 Interpretive Statements SINUS TACHYCARDIA POSSIBLE LEFT ATRIAL ENLARGEMENT BORDERLINE ST-T WAVE ABNORMALITY- INFERIOR LEADS ABNORMAL ECG Electronically Signed On 12-29-2020 12:04:39 CDT by Steve Boyle D.O.
--- NOTE | 2020-12-29 07:18 | PC.NURSE ---
Versed 4 mg given IVP at this time followed by succinylcholine 100mg IVP v.o. Dr. Tran.
--- NOTE | 2020-12-29 07:28 | PC.NURSE ---
Another dose of 4 mg versed given along with Succinylcholine 100 mg given at this time v.o. Dr. Tran. ET tube placed at this time 7.5 at 24 at teeth. Good color change in co2 detector with good rise and fall of chest with equal breath sounds.
--- NOTE | 2020-12-29 07:35 | PC.NURSE ---
16 Fr NG placed at this time 65 at left nare. Auscultation heard.
--- NOTE | 2020-12-29 07:36 | PC.NURSE ---
Patient ET tube was repositioned and noted to be 25 at lip per respiratory.
--- NOTE | 2020-12-29 07:37 | PC.NURSE ---
Dr. Tran obtained femoral blood at this time for lab. Patient is difficult stick r/t drug use.
[2020-12-29] MEDS: RAPID SEQUENCE INTUBATION KIT 1 EACH (07:38)
[2020-12-29] MEDS: SODIUM CHLORIDE 0.9% IV 1,000 ML 999 ML IV CONT ×3 (07:39→10:14)
[2020-12-29 07:49] LABS: Alveolar/Arterial O2 Gradient 564.9 mmHg; Base Excess ABG -7.6 mEq/l (+/-2.0); Fractional Inspired Oxygen 100 %; HCO3 ABG 20.1 mEq/l (22.0-26.0); Oxygen Content ABG 21.6 %vol (16.0-22.0); Oxygen Saturation ABG 96.4 % (95.0-100.0); Oxyhemoglobin 93.9 % THb (90.0-100.0); PCO2 ABG 48.5 mmHg (35.0-45.0); PO2 ABG 99.6 mmHg (80.0-100.0); Total Hemoglobin 16.3 g/dL (12.0-18.0)
[2020-12-29 07:51] LABS: Device VENTILATOR; Modified Allen's Test Pass; Site Drawn RIGHT RADIAL; pH ABG 7.235 (7.350-7.450)
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
[2020-12-29 07:52] LABS: Arterial Blood Gas Vent Mode CMV; Arterial Blood Gas Ventilator rate 16 /MIN
[2020-12-29 07:53] LABS: Arterial Blood Gas PEEP 5 cmH2O; Arterial Blood Gas Tidal Volume 440 ml
[2020-12-29] MEDS: PROPOFOL IV EMULSION 100 ML 3 MG IV CONT (07:54)
[2020-12-29 08:10] LABS: Hematocrit 48.6 % (42.0-52.0); Hemoglobin 15.8 g/dL (14.0-18.0); Mean Corpuscular HGB Conc 32.5 g/dl (32-36); Mean Corpuscular Hemoglobin 30.2 pg (26-34); Mean Corpuscular Volume 92.7 fl (80-100); Mean Platelet Volume 10.3 fl (7.4-10.4); Platelet Count Result 416 k/mm3 (150-375); Red Blood Count 5.24 M/mm3 (4.6-6.20); Red Cell Distribution Width 13.2 % (11.5-14.5); White Blood Count 28.9 K/mm3 (4.5-10.0)
[2020-12-29 08:14] LABS: Add Urine Microscopic? YES; Appearance Urine Cloudy (Clear); Bacteria Urine Trace /hpf; Bilirubin Urine Negative (Negative); Blood Urine 1+ (Negative); Color Urine Yellow (Yellow); Glucose Urine UA Negative (Negative); Ketones Urine Trace mg/dL (Negative); Leukocyte Esterase Ur Negative LEU/UL (Negative); Mucus Urine Rare /lpf; Nitrate Urine Negative (Negative); Protein Urine 1+ mg/dL (Negative); Specific Grav Ur 1.018 (1.001-1.035); Squamous Epithelial Cell Urine Rare /hpf (Few); Urobilinogen Urine Negative mg/dL (<2.0)
[2020-12-29 08:18] LABS: Prothrombin Time 13.6 Seconds (11.1-14.7)
[2020-12-29 08:19] LABS: Partial Thromboplastin Time 27.2 SECONDS (22.3-36.8)
[2020-12-29 08:28] LABS: Band Neutrophils Percent 6 % (0-6); Eosinophils Absolute Manual 0.28 K/mm3 (0.02-0.5); Eosinophils Percent Manual 1 % (0-4); Neutrophils Absolute Manual 28.61 K/mm3 (1.3-6.7); Neutrophils Percent Manual 93 % (46-73); Platelet Estimate Adequate (Adequate); Total Cells Counted 100
[2020-12-29 08:29] LABS: Barbiturate Screen Urine Negative (Negative); Benzodiazepines Screen Urine Positive (Negative)
[2020-12-29 08:32] LABS: Cannabinoid Screen Urine Positive (Negative); Cocaine Screen Urine Positive (Negative); Methadone Screen Urine Negative (Negative); Opiate Screen Urine Negative (Negative); Phencyclidine Screen Urine Negative (Negative)
[2020-12-29 08:47] LABS: Amphetamine Screen Urine Positive (Negative)
[2020-12-29 09:18] LABS: Lactic Acid Reflex 2.2 mmol/L (0.7-2.1)
[2020-12-29 09:22] LABS: Lithium 0.2 mmol/L (0.6-1.2)
[2020-12-29 09:24] LABS: Acetaminophen < 10 ug/mL (10-30); Ammonia < 9 umol/L (9-30); Ethanol < 10 mg/dL (<10); Salicylate < 1.0 mg/dL (2-20)
[2020-12-29 09:29] LABS: Alanine Aminotransferase 264 U/L (4-50); Albumin Level 3.9 g/dL (3.5-5.1); Alkaline Phosphatase 88 U/L (38-126); Anion Gap 10 mmol/L (8-16); Aspartate Amino Transferase 323 U/L (17-59); Bilirubin,Total 0.6 mg/dL (0.2-1.3); Blood Urea Nitrogen 19 mg/dL (9-20); Calcium 8.6 mg/dL (8.4-10.2); Carbon Dioxide 22 mmol/L (22-30); Chloride 105 mmol/L (98-107); Creatine Kinase 551 U/L (55-170); Estimated Glomerular Filt Rate > 60; Glucose 47 mg/dL (75-110); Magnesium 2.2 mg/dL (1.6-2.3); Phosphorus 7.2 mg/dL (2.5-4.5); Potassium 3.4 mmol/L (3.4-5.0); Sodium 137 mmol/L (137-145)
[2020-12-29] MEDS: DEXTROSE 50% 25 GM/50 ML SYRINGE (09:37)
--- NOTE | 2020-12-29 09:43 | WPDCNINT ---
Assessment and Plan Assessment and plan (1) Acute respiratory failure: Code(s): J96.00 - Acute respiratory failure, unspecified whether with hypoxia or hypercapnia Status: Acute Assessment and Plan: Acute Respiratory failure secondary to encephalopathy and aspiration pneumonia Continue full mechanical ventilation support to prevent hypoxemia/hypercarbia and end organ damage. ABG and PCXR reviewed Increase tidal volume to 500 and respiratory rate to 24 Recheck ABG. Low tidal volume ventilation strategy to prevent volutrauma Will attempt SBT when ready to wean. Bronchodilators (2) Sepsis: Qualifiers: Sepsis acute organ dysfunction status: unspecified Sepsis type: sepsis due to unspecified organism Qualified Code(s): A41.9 - Sepsis, unspecified organism Code(s): A41.9 - Sepsis, unspecified organism Status: Acute Assessment and Plan: Secondary to aspiration pneumonia. will also check for bacteremia Urine sputum and blood cultures IV fluid bolus maintenance IV fluids Monitor lactate Empiric vancomycin aztreonam and Flagyl (3) Aspiration pneumonia: Code(s): J69.0 - Pneumonitis due to inhalation of food and vomit Status: Acute Assessment and Plan: See above In ER, SARS-CoV-2 PCR sent and results pending Patient is in Airborne, Droplet and Contact Isolation (4) Polysubstance abuse: Code(s): F19.10 - Other psychoactive substance abuse, uncomplicated Status: Acute Assessment and Plan: UDS positive for amphetamine benzodiazepine cocaine and cannabinoids (5) Altered mental status: Qualifiers: Altered mental status type: unspecified Qualified Code(s): R41.82 - Altered mental status, unspecified Code(s): R41.82 - Altered mental status, unspecified Status: Acute Assessment and Plan: Likely toxic metabolic encephalopathy secondary to sepsis and drug use. Patient also on sedative medications like Neurontin Currently sedated with propofol Head CT was negative Check ammonia and TSH Daily sedation holiday (6) Hypoglycemia: Code(s): E16.2 - Hypoglycemia, unspecified Status: Acute Assessment and Plan: IV fluids with dextrose Monitor blood sugars (7) Paraplegia: Code(s): G82.20 - Paraplegia, unspecified Status: Chronic Additional Plan DVT prophylaxis -subcu Lovenox Stress ulcer prophylaxis -Pepcid Nutrition -NPO Code Status - Full Code Total Critical Care Time - 45 minutes Due to a high probability of clinically significant, life threatening deterioration, the patient required my highest level of preparedness to intervene emergently and I personally spent this critical care time directly and personally managing the patient. This critical care time included obtaining a history; examining the patient; pulse oximetry; ordering and review of studies; arranging urgent treatment with development of a management plan; evaluation of patient's response to treatment; frequent reassessment; and discussions with other providers. It was exclusive of separately billable procedures and treating other patients and teaching time. Please see Assessment and Plan section and the rest of the note for further information on patient assessment and treatment Rivet [facility]er Consult Note Consult date: 12/29/20 Time Seen: 09:45 HPI: Narciso Khalil is a 40 year old male who is paraplegic and has history of substance abuse and was recently discharged from hospital last month after treatment of sepsis was brought back by EMS for unresponsiveness. He was tachypneic on presentation hypoxic and unable to protect his airway. He was intubated in the ED and started on IV propofol. He was given a 1 L saline bolus and started on antibiotics. He is being admitted to ICU for further evaluation and management. Patient has history of use of meth, marijuana and cocaine. He was also on benzodiazepines as an outpatient. He was
[2020-12-29 10:23] LABS: Alveolar/Arterial O2 Gradient 583.4 mmHg; Base Excess ABG -0.9 mEq/l (+/-2.0); Fractional Inspired Oxygen 100 %; HCO3 ABG 25.6 mEq/l (22.0-26.0); Oxygen Content ABG 19.8 %vol (16.0-22.0); Oxygen Saturation ABG 95.1 % (95.0-100.0); Oxyhemoglobin 93.8 % THb (90.0-100.0); PCO2 ABG 48.9 mmHg (35.0-45.0); PO2 ABG 80.7 mmHg (80.0-100.0); PO2 FiO2 Ratio Arterial Blood 0.81 %; pH ABG 7.336 (7.350-7.450)
[2020-12-29 10:24] LABS: Arterial Blood Gas Vent Mode CMV; Arterial Blood Gas Ventilator rate 16 /MIN; Device VENTILATOR; Modified Allen's Test Pass; Site Drawn RIGHT RADIAL
[2020-12-29] MEDS: AZTREONAM 2 GM in DEXTROSE 5% 100 ML 200 ML IVPB ×2 (10:24→21:26)
[2020-12-29 10:25] LABS: Arterial Blood Gas PEEP 5 cmH2O; Arterial Blood Gas Tidal Volume 440 ml
[2020-12-29] MEDS: PROPOFOL IV EMULSION 100 ML 2.79 MG IV CONT (11:00)
[2020-12-29] MEDS: DEXTROSE 50% 25 GM/50 ML SYRINGE IV PUSH ×4 (11:13→23:57)
[2020-12-29 11:15] LABS: Glucose Point of Care 58 mg/dl (65-105)
--- NOTE | 2020-12-29 11:16 | ADMGEN ---
This patient, Narciso Khalil, was admitted to Intensive Care Unit-6. Patient/family oriented to hospital policies and general routines including ID bracelet, bed and alarms, visiting hours, pain management, procedures, bathroom and other care routines, personal items, smoking policy, room service/diet, and visiting hours. Information on how to activate the Rapid Response Team has been discussed. Patient/Family are encouraged to report perceived risks to care and to ask questions if they do not understand what they are told or what they should do.
[2020-12-29 11:24] LABS: Ammonia < 9 umol/L (9-30)
[2020-12-29 11:36] LABS: Glucose Point of Care 185 mg/dl (65-105)
[2020-12-29 11:55] LABS: Thyroid Stimulating Hormone 0.655 uIU/mL (0.465-4.680)
[2020-12-29] MEDS: DEXTROSE 5%/LACTATED RINGERS 1,000 ML 100 ML IV CONT ×2 (11:58→23:32)
[2020-12-29] MEDS: metroNIDAZOLE 500 MG/ISO 100ML 500 MG/100 ML BAG 100 MG IVPB ×3 (11:58→23:29)
[2020-12-29 12:01] LABS: Reflex Lactic Acid Yes or No Add Lactic
[2020-12-29 12:47] LABS: Barbiturate Screen Urine Negative (Negative); Benzodiazepines Screen Urine Positive (Negative)
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
[2020-12-29 13:06] LABS: Cannabinoid Screen Urine Positive (Negative); Cocaine Screen Urine Positive (Negative); Methadone Screen Urine Negative (Negative); Opiate Screen Urine Negative (Negative); Phencyclidine Screen Urine Negative (Negative)
[2020-12-29 13:24] LABS: Lactic Acid 2.1 mmol/L (0.7-2.1)
[2020-12-29 13:29] LABS: Amphetamine Screen Urine Positive (Negative)
[2020-12-29 13:46] LABS: Glucose Point of Care 107 mg/dl (65-105)
[2020-12-29 16:45] LABS: Glucose Point of Care 67 mg/dl (65-105)
[2020-12-29 16:45] LABS: Glucose Point of Care 111 mg/dl (65-105)
[2020-12-29 16:45] LABS: Glucose Point of Care 107 mg/dl (65-105)
[2020-12-29] MEDS: PROPOFOL IV EMULSION 100 ML 19.51 MG IV CONT (17:00)
[2020-12-29] MEDS: fentaNYL CITRATE INJ (*CRX) 100 MCG/2 ML VIAL 50 MCG IV PUSH ×3 (18:25→21:58)
[2020-12-29 18:34] LABS: Glucose Point of Care 69 mg/dl (65-105)
[2020-12-29 19:55] LABS: SARS-CoV-2 RNA PCR Negative
[2020-12-29 20:40] LABS: Glucose Point of Care 73 mg/dl (65-105)
[2020-12-29] MEDS: PROPOFOL IV EMULSION 100 ML 27.87 MG IV CONT (21:24)
[2020-12-29] MEDS: MIDAZOLAM HCL (*CRX) 2 MG/2 ML VIAL ×2 (22:21)
[2020-12-29] MEDS: FAMOTIDINE 20 MG/2 ML VIAL IV PUSH (22:22)
[2020-12-29] MEDS: FENTANYL 2,500MCG/NS250ML(*CRX 2,500 MCG/250 ML BAG IV CONT (22:29)
[2020-12-29 22:32] LABS: Glucose Point of Care 70 mg/dl (65-105)
[2020-12-29 23:56] LABS: Glucose Point of Care 59 mg/dl (65-105)
[2020-12-30] VITALS (20 sets, daily range): BP systolic 103–157; BP diastolic 49–81; PULSE 77–122; RESP 23–32; TEMP 36.4–37.4; O2SAT 86–100
[2020-12-30 00:19] LABS: Glucose Point of Care 73 mg/dl (65-105)
[2020-12-30] MEDS: PROPOFOL IV EMULSION 100 ML 27.87 MG IV CONT ×2 (00:39→04:02)
[2020-12-30 02:02] LABS: Glucose Point of Care 88 mg/dl (65-105)
[2020-12-30 03:57] LABS: Glucose Point of Care 77 mg/dl (65-105)
[2020-12-30 04:42] LABS: Alveolar/Arterial O2 Gradient 177.7 mmHg; Base Excess ABG 1.2 mEq/l (+/-2.0); Carboxyhemoglobin 0.3 % THb (0-2.0); Fractional Inspired Oxygen 40 %; HCO3 ABG 23.4 mEq/l (22.0-26.0); Methemoglobin ABG 0.3 %THb (0-1.5); Oxygen Content ABG 17.5 %vol (16.0-22.0); Oxyhemoglobin 94.3 % THb (90.0-100.0); PCO2 ABG 30.2 mmHg (35.0-45.0); PO2 ABG 72.8 mmHg (80.0-100.0); PO2 FiO2 Ratio Arterial Blood 1.82 %; Reduced Hemoglobin 5.1 %THb (0-5.0); Total Hemoglobin 13.2 g/dL (12.0-18.0)
[2020-12-30 04:43] LABS: Arterial Blood Gas Vent Mode CMV; Arterial Blood Gas Ventilator rate 24 /MIN; Device VENTILATOR; Modified Allen's Test Pass; Site Drawn RIGHT RADIAL; pH ABG 7.507 (7.350-7.450)
[2020-12-30 04:44] LABS: Arterial Blood Gas PEEP 5 cmH2O; Arterial Blood Gas Tidal Volume 500 ml
[2020-12-30] MEDS: AZTREONAM 2 GM in DEXTROSE 5% 100 ML 200 ML IVPB ×2 (05:30→21:15)
[2020-12-30] MEDS: metroNIDAZOLE 500 MG/ISO 100ML 500 MG/100 ML BAG 100 MG IVPB ×3 (06:07→23:02)
[2020-12-30 06:13] LABS: Glucose Point of Care 81 mg/dl (65-105)
[2020-12-30 07:25] LABS: Basophils Absolute Auto 0.1 K/mm3 (0.0-0.1); Basophils Percent Auto 0.4 % (0.2-1.2); Eosinophils Absolute Auto 0.2 K/mm3 (0-0.3); Eosinophils Percent Auto 1.7 % (0-4.4); Hematocrit 37.6 % (42.0-52.0); Hemoglobin 13.3 g/dL (14.0-18.0); Immature Granulocyte Absolute 0.24 K/mm3 (0.00-0.031); Immature Granulocyte Percent A 1.8 % (0-0.5); Immature Platelet Fraction Pct 4.1 % (0.9-11.2); Lymphocytes Absolute Auto 1.13 K/mm3 (0.9-3.2); Lymphocytes Percent Auto 8.4 % (18.3-44.2); Mean Corpuscular HGB Conc 35.4 g/dl (32-36); Mean Corpuscular Hemoglobin 30.2 pg (26-34); Mean Corpuscular Volume 85.5 fl (80-100); Mean Platelet Volume 10.4 fl (7.4-10.4); Monocytes Absolute Auto 0.7 K/mm3 (0.1-0.6); Monocytes Percent Auto 5.1 % (2.6-8.5); Neutrophils Absolute Auto 11.1 K/mm3 (1.3-6.7); Neutrophils Percent Auto 82.6 % (45.5-73.1); Platelet Count Result 240 k/mm3 (150-375); Red Cell Distribution Width 13.4 % (11.5-14.5); White Blood Count 13.5 K/mm3 (4.5-10.0)
[2020-12-30 07:43] LABS: Magnesium 1.9 mg/dL (1.6-2.3); Triglycerides 145 mg/dL (<150)
[2020-12-30] MEDS: FAMOTIDINE 20 MG/2 ML VIAL IV PUSH ×2 (08:44→21:15)
--- NOTE | 2020-12-30 08:48 | WPDINTPN ---
Progress Note: A&P Assessment and Plan (1) Acute respiratory failure: Code(s): J96.00 - Acute respiratory failure, unspecified whether with hypoxia or hypercapnia Status: Acute Assessment and Plan: Acute Respiratory failure secondary to encephalopathy and aspiration pneumonia Continue full mechanical ventilation support to prevent hypoxemia/hypercarbia and end organ damage. ABG and PCXR reviewed Decrease tidal volume to 450 and respiratory rate to 20 Sedation holiday and weaning trial today Low tidal volume ventilation strategy to prevent volutrauma Bronchodilators (2) Sepsis: Qualifiers: Sepsis acute organ dysfunction status: unspecified Sepsis type: sepsis due to unspecified organism Qualified Code(s): A41.9 - Sepsis, unspecified organism Code(s): A41.9 - Sepsis, unspecified organism Status: Acute Assessment and Plan: Secondary to aspiration pneumonia. will also check for bacteremia Urine sputum and blood cultures pending IV fluid bolus given Continue maintenance IV fluids Empiric vancomycin aztreonam and Flagyl (3) Aspiration pneumonia: Code(s): J69.0 - Pneumonitis due to inhalation of food and vomit Status: Acute Assessment and Plan: See above In ER, SARS-CoV-2 PCR negative (4) Polysubstance abuse: Code(s): F19.10 - Other psychoactive substance abuse, uncomplicated Status: Acute Assessment and Plan: UDS positive for amphetamine benzodiazepine cocaine and cannabinoids (5) Altered mental status: Qualifiers: Altered mental status type: unspecified Qualified Code(s): R41.82 - Altered mental status, unspecified Code(s): R41.82 - Altered mental status, unspecified Status: Acute Assessment and Plan: Likely toxic metabolic encephalopathy secondary to sepsis and drug use. Patient also on sedative medications like Neurontin Currently sedated with propofol Head CT was negative Normal ammonia and TSH Daily sedation holiday (6) Hypoglycemia: Code(s): E16.2 - Hypoglycemia, unspecified Status: Acute Assessment and Plan: IV fluids with dextrose Monitor blood sugars (7) Paraplegia: Code(s): G82.20 - Paraplegia, unspecified Status: Chronic Additional Plan DVT prophylaxis -subcu Lovenox Stress ulcer prophylaxis -Pepcid Nutrition -start tube feeds if unable to extubate Code Status - Full Code Total Critical Care Time - 35 minutes Due to a high probability of clinically significant, life threatening deterioration, the patient required my highest level of preparedness to intervene emergently and I personally spent this critical care time directly and personally managing the patient. This critical care time included obtaining a history; examining the patient; pulse oximetry; ordering and review of studies; arranging urgent treatment with development of a management plan; evaluation of patient's response to treatment; frequent reassessment; and discussions with other providers. It was exclusive of separately billable procedures and treating other patients and teaching time. Please see Assessment and Plan section and the rest of the note for further information on patient assessment and treatment Subjective Date/time seen: 12/30/20 Overnight events reviewed. Patient became agitated overnight and sedation had to be increased. Patient was started on fentanyl infusion to complement protocol propofol Afebrile Continues to be on mechanical ventilation Vitals acceptable Review of Systems Review of Systems: ROS unobtainable: Yes unobtainable due to endotracheal tube Exam Narrative: Exam Narrative: General: Pt is sedated, intubated and on mechanical ventilation unresponsive Lungs/Chest: Trachea central Coarse BS B/L, No crackles or wheezing. Cardiac: RRR. Normal S1 S2. No murmurs Circulation: Pedal pulses are decreased but intact and symmetrical. Abdomen: Decreased bowel s
[2020-12-30 08:55] LABS: Glucose Point of Care 90 mg/dl (65-105)
[2020-12-30 09:08] LABS: Alanine Aminotransferase 485 U/L (4-50); Alkaline Phosphatase 45 U/L (38-126); Anion Gap 7 mmol/L (8-16); Aspartate Amino Transferase 432 U/L (17-59); Bilirubin,Total 0.8 mg/dL (0.2-1.3); Blood Urea Nitrogen 9 mg/dL (9-20); Calcium 8.4 mg/dL (8.4-10.2); Carbon Dioxide 19 mmol/L (22-30); Chloride 109 mmol/L (98-107); Estimated CRCL calculation 142 ml/min; Estimated Glomerular Filt Rate > 60; Glucose 97 mg/dL (75-110); Potassium 3.1 mmol/L (3.4-5.0); Sodium 135 mmol/L (137-145)
[2020-12-30 09:23] LABS: Albumin Level 2.8 g/dL (3.5-5.1)
[2020-12-30] MEDS: ENOXAPARIN 40 MG/0.4 ML SYRINGE SUB-Q (09:27)
[2020-12-30 09:30] LABS: Alveolar/Arterial O2 Gradient 205.5 mmHg; Base Excess ABG -1.3 mEq/l (+/-2.0); Fractional Inspired Oxygen 40 %; HCO3 ABG 24.4 mEq/l (22.0-26.0); Oxygen Content ABG 9.3 %vol (16.0-22.0); PCO2 ABG 44.5 mmHg (35.0-45.0); PO2 FiO2 Ratio Arterial Blood 0.71 %; Total Hemoglobin 13.5 g/dL (12.0-18.0); pH ABG 7.357 (7.350-7.450)
[2020-12-30 09:38] LABS: Device VENTILATOR; Modified Allen's Test Pass; Oxygen Saturation ABG 50.9 % (95.0-100.0); PO2 ABG 28.5 mmHg (80.0-100.0); Site Drawn RIGHT RADIAL
[2020-12-30 09:39] LABS: Arterial Blood Gas PEEP 5 cmH2O; Arterial Blood Gas Pressure Support 5 cmH2O; Arterial Blood Gas Vent Mode SPONTANEOUS
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
[2020-12-30] MEDS: DEXTROSE 5%/LACTATED RINGERS 500 ML 100 ML IV CONT ×3 (10:16→23:22)
[2020-12-30 10:27] LABS: Glucose Point of Care 109 mg/dl (65-105)
[2020-12-30 12:23] LABS: Glucose Point of Care 114 mg/dl (65-105)
[2020-12-30] MEDS: GABAPENTIN 300 MG CAPSULE 600 MG PO ×2 (13:15→18:19)
[2020-12-30 14:23] LABS: Glucose Point of Care 129 mg/dl (65-105)
[2020-12-30 16:43] LABS: Glucose Point of Care 112 mg/dl (65-105)
[2020-12-30 21:23] LABS: Glucose Point of Care 98 mg/dl (65-105)
[2020-12-31] VITALS (11 sets, daily range): BP systolic 94–148; BP diastolic 53–92; PULSE 76–111; RESP 18–35; TEMP 35.6–37.5; O2SAT 90–100
[2020-12-31 00:14] LABS: Vancomycin Trough 6.3 ug/mL (10.0-20.0)
[2020-12-31 01:12] LABS: Glucose Point of Care 128 mg/dl (65-105)
[2020-12-31 04:26] LABS: Basophils Percent Auto 0.4 % (0.2-1.2); Eosinophils Absolute Auto 0.3 K/mm3 (0-0.3); Hematocrit 34.8 % (42.0-52.0); Hemoglobin 11.9 g/dL (14.0-18.0); Immature Granulocyte Absolute 0.03 K/mm3 (0.00-0.031); Immature Granulocyte Percent A 0.3 % (0-0.5); Lymphocytes Absolute Auto 0.96 K/mm3 (0.9-3.2); Lymphocytes Percent Auto 10.2 % (18.3-44.2); Mean Corpuscular HGB Conc 34.2 g/dl (32-36); Mean Corpuscular Hemoglobin 30.1 pg (26-34); Mean Corpuscular Volume 88.1 fl (80-100); Mean Platelet Volume 10.3 fl (7.4-10.4); Monocytes Absolute Auto 0.7 K/mm3 (0.1-0.6); Monocytes Percent Auto 7.5 % (2.6-8.5); Neutrophils Absolute Auto 7.4 K/mm3 (1.3-6.7); Neutrophils Percent Auto 78.6 % (45.5-73.1); Platelet Count Result 237 k/mm3 (150-375); Red Blood Count 3.95 M/mm3 (4.6-6.20); White Blood Count 9.4 K/mm3 (4.5-10.0)
[2020-12-31 04:34] LABS: Alveolar/Arterial O2 Gradient 78.5 mmHg; Base Excess ABG 1.2 mEq/l (+/-2.0); Carboxyhemoglobin 0.2 % THb (0-2.0); Fractional Inspired Oxygen 28 %; HCO3 ABG 24.6 mEq/l (22.0-26.0); Methemoglobin ABG 0.2 %THb (0-1.5); Oxygen Content ABG 18.7 %vol (16.0-22.0); Oxygen Saturation ABG 96.4 % (95.0-100.0); PCO2 ABG 35.2 mmHg (35.0-45.0); PO2 ABG 79.6 mmHg (80.0-100.0); PO2 FiO2 Ratio Arterial Blood 2.84 %; Reduced Hemoglobin 4.6 %THb (0-5.0); pH ABG 7.462 (7.350-7.450)
[2020-12-31 04:35] LABS: Device NASAL CANNULA; Modified Allen's Test Pass; Site Drawn RIGHT RADIAL
[2020-12-31] MEDS: DEXTROSE 5%/LACTATED RINGERS 500 ML 100 ML IV CONT (04:38)
[2020-12-31 04:48] LABS: Alanine Aminotransferase 351 U/L (4-50); Alkaline Phosphatase 56 U/L (38-126); Anion Gap 1 mmol/L (8-16); Aspartate Amino Transferase 224 U/L (17-59); Blood Urea Nitrogen 3 mg/dL (9-20); Calcium 8.4 mg/dL (8.4-10.2); Carbon Dioxide 31 mmol/L (22-30); Chloride 103 mmol/L (98-107); Estimated CRCL calculation 167 ml/min; Estimated Glomerular Filt Rate > 60; Glucose 111 mg/dL (75-110); Magnesium 1.6 mg/dL (1.6-2.3); Sodium 135 mmol/L (137-145)
[2020-12-31] MEDS: AZTREONAM 2 GM in DEXTROSE 5% 100 ML 200 ML IVPB ×3 (05:52→20:38)
[2020-12-31 05:58] LABS: Glucose Point of Care 121 mg/dl (65-105)
[2020-12-31] MEDS: metroNIDAZOLE 500 MG/ISO 100ML 500 MG/100 ML BAG 100 MG IVPB ×2 (06:28→17:19)
[2020-12-31] MEDS: POTASSIUM CHLORIDE 20 MEQ TABLET 40 MEQ PO ×3 (08:07→18:27)
--- NOTE | 2020-12-31 08:08 | WPDINTPN ---
Progress Note: A&P Assessment and Plan (1) Acute respiratory failure: Code(s): J96.00 - Acute respiratory failure, unspecified whether with hypoxia or hypercapnia Status: Acute Assessment and Plan: Acute Respiratory failure secondary to encephalopathy and aspiration pneumonia Patient was successfully extubated yesterday after a successful weaning trial Maintaining saturations on room air ABG and PCXR reviewed At [facility] Bronchodilators (2) Sepsis: Qualifiers: Sepsis acute organ dysfunction status: unspecified Sepsis type: sepsis due to unspecified organism Qualified Code(s): A41.9 - Sepsis, unspecified organism Code(s): A41.9 - Sepsis, unspecified organism Status: Acute Assessment and Plan: Secondary to aspiration pneumonia. will also check for bacteremia Urine sputum and blood cultures have been been negative Discontinue maintenance IV fluids Empiric vancomycin aztreonam and Flagyl. Will discontinue vancomycin if cultures stayed negative today (3) Aspiration pneumonia: Code(s): J69.0 - Pneumonitis due to inhalation of food and vomit Status: Acute Assessment and Plan: See above SARS-CoV-2 PCR negative (4) Polysubstance abuse: Code(s): F19.10 - Other psychoactive substance abuse, uncomplicated Status: Acute Assessment and Plan: UDS positive for amphetamine benzodiazepine cocaine and cannabinoids (5) Altered mental status: Qualifiers: Altered mental status type: unspecified Qualified Code(s): R41.82 - Altered mental status, unspecified Code(s): R41.82 - Altered mental status, unspecified Status: Acute Assessment and Plan: Likely toxic metabolic encephalopathy secondary to sepsis and drug use. Now resolved (6) Hypoglycemia: Code(s): E16.2 - Hypoglycemia, unspecified Status: Acute Assessment and Plan: Resolved Continue diet Continue to Monitor blood sugars (7) Paraplegia: Code(s): G82.20 - Paraplegia, unspecified Status: Chronic (8) Hypokalemia: Code(s): E87.6 - Hypokalemia Status: Acute Assessment and Plan: Replace low potassium Additional Plan DVT prophylaxis -subcu Lovenox Stress ulcer prophylaxis -Pepcid Nutrition -regular diet Code Status - Full Code Transfer out of ICU today Subjective Date/time seen: 12/31/20 Patient was extubated yesterday after a successful weaning trial. This morning he saturating well on room air and states that he is uncomfortable due to soft mattress and did not sleep well. He also does not feel hungry. Denies any other complaints. He has been afebrile. Patient denies fever, chest pain, shortness of breath, cough, nausea vomiting, abdominal pain,, diarrhea, headache or constipation. All other systems were reviewed and were negative Review of Systems Review of Systems: All systems reviewed & are unremarkable except as noted in HPI and below (Subjective) Exam Narrative: Exam Narrative: General: Pt is alert awake and in NAD Lungs/Chest: Trachea central course BS B/L, No crackles or wheezing. Cardiac: RRR. Normal S1 S2. No murmurs Circulation: Pedal pulses are intact and symmetrical. Abdomen: Decreased bowel sounds. Large midline scar from past surgery. Soft. NT. ND. Extremities: No clubbing, cyanosis or edema. Warm : Chapman in place Skin: Track moyer from IV drug use around both armpits, scar on his left forearm, several areas of healed wounds in legs, but large number of tattoos all over his body, edema of right eyelid Neurologic: Alert oriented x3, paraplegic. PERRL Objective Data Vital Signs Vital Signs: Vital Signs - 24 hr 12/30/20 08:45 12/30/20 10:00 12/30/20 12:00 Temperature 37.4 C Pulse Rate 80 92 113 H Respiratory Rate 30 H 23 H Blood Pressure 157/81 H 123/77 Pulse Oximetry 100 95 91 12/30/20 14:00 12/30/20 16:00 12/30/20 18:00 Temperature 37.0 C Pulse Rate 103 H
[2020-12-31] MEDS: GABAPENTIN 300 MG CAPSULE 600 MG PO ×3 (08:09→16:49)
[2020-12-31] MEDS: FAMOTIDINE 20 MG/2 ML VIAL IV PUSH ×2 (08:09→20:39)
[2020-12-31] MEDS: ENOXAPARIN 40 MG/0.4 ML SYRINGE SUB-Q (08:09)
[2020-12-31 08:12] LABS: Glucose Point of Care 68 mg/dl (65-105)
[2020-12-31 08:13] LABS: Glucose Point of Care 128 mg/dl (65-105)
[2020-12-31 08:26] LABS: Glucose Point of Care 89 mg/dl (65-105)
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
--- NOTE | 2020-12-31 09:00 | PC.NURSE ---
Patient resting quietly in bed, no complaints
--- NOTE | 2020-12-31 11:35 | PC.NURSE ---
Mother to bedside, patient c/o restlessness. Dr. Palomino aware, only give home medications. No PRN pain medications at this time.
[2020-12-31] MEDS: busPIRone HCL 10 MG TABLET 30 MG PO ×2 (12:00→20:37)
[2020-12-31] MEDS: amLODIPine BESYLATE 2.5 MG TABLET PO ×2 (12:01→20:37)
[2020-12-31] MEDS: DULoxetine HCL 60 MG CAPSULE.DR PO (12:01)
[2020-12-31] MEDS: OXYBUTYNIN CHLORIDE 5 MG TABLET PO ×3 (12:02→16:49)
[2020-12-31] MEDS: LITHIUM CARBONATE 300 MG CAPSULE PO ×2 (12:11→20:37)
--- NOTE | 2020-12-31 12:35 | PC.NURSE ---
This patient, Narciso Khalil, was received from [imu] on 12/31/20 at 1235. Patient/family oriented to unit policies and routines
[2020-12-31 12:55] LABS: Glucose Point of Care 94 mg/dl (65-105)
[2020-12-31] MEDS: SILVERGEL (ELTA) 45 ML 1 APPLIC TOPICAL (13:01)
[2020-12-31] MEDS: DEXTROSE 5%/0.45% SOD CHL 1,000 ML 75 ML IV CONT (13:26)
[2020-12-31] MEDS: LORazepam INJ (*CRX) 2 MG/ML VIAL IV PUSH ×2 (13:26→20:50)
--- NOTE | 2020-12-31 14:06 | PC.NURSE ---
This patient, Narciso Khalil, was transferred to [facility] via bed with RN and mother at bedside on 12/31/20 at 1235. Personal belongings sent with patient. Report given to FELICE Gallardo. Appropriate documentation sent with patient.
[2020-12-31 16:48] LABS: Glucose Point of Care 138 mg/dl (65-105)
[2021-01-01] MEDS: metroNIDAZOLE 500 MG/ISO 100ML 500 MG/100 ML BAG 100 MG IVPB ×4 (00:23→16:53)
[2021-01-01] MEDS: LORazepam INJ (*CRX) 2 MG/ML VIAL IV PUSH ×6 (01:15→22:39)
[2021-01-01 02:15] VITALS: O2SAT 92
[2021-01-01 02:25] LABS: Glucose Point of Care 117 mg/dl (65-105)
[2021-01-01] MEDS: AZTREONAM 2 GM in DEXTROSE 5% 100 ML 200 ML IVPB ×3 (05:25→21:54)
[2021-01-01] MEDS: DEXTROSE 5%/0.45% SOD CHL 1,000 ML 75 ML IV CONT ×2 (05:29→23:21)
[2021-01-01 05:30] VITALS: BP 107/53; PULSE 105; RESP 20; TEMP 36.4; O2SAT 95
[2021-01-01 05:59] LABS: Basophils Percent Auto 0.5 % (0.2-1.2); Eosinophils Absolute Auto 0.4 K/mm3 (0-0.3); Hematocrit 37.7 % (42.0-52.0); Hemoglobin 12.6 g/dL (14.0-18.0); Immature Granulocyte Absolute 0.03 K/mm3 (0.00-0.031); Immature Granulocyte Percent A 0.5 % (0-0.5); Lymphocytes Absolute Auto 1.16 K/mm3 (0.9-3.2); Lymphocytes Percent Auto 17.7 % (18.3-44.2); Mean Corpuscular HGB Conc 33.4 g/dl (32-36); Mean Corpuscular Hemoglobin 29.9 pg (26-34); Mean Corpuscular Volume 89.3 fl (80-100); Mean Platelet Volume 10.2 fl (7.4-10.4); Monocytes Absolute Auto 0.6 K/mm3 (0.1-0.6); Monocytes Percent Auto 8.4 % (2.6-8.5); Neutrophils Absolute Auto 4.4 K/mm3 (1.3-6.7); Neutrophils Percent Auto 66.9 % (45.5-73.1); Platelet Count Result 251 k/mm3 (150-375); Red Blood Count 4.22 M/mm3 (4.6-6.20); Red Cell Distribution Width 13.1 % (11.5-14.5); White Blood Count 6.6 K/mm3 (4.5-10.0)
[2021-01-01 06:17] LABS: Alanine Aminotransferase 237 U/L (4-50); Alkaline Phosphatase 51 U/L (38-126); Anion Gap 6 mmol/L (8-16); Aspartate Amino Transferase 88 U/L (17-59); Bilirubin,Total 0.3 mg/dL (0.2-1.3); Blood Urea Nitrogen 5 mg/dL (9-20); Calcium 8.3 mg/dL (8.4-10.2); Carbon Dioxide 29 mmol/L (22-30); Chloride 107 mmol/L (98-107); Estimated CRCL calculation 142 ml/min; Estimated Glomerular Filt Rate > 60; Glucose 100 mg/dL (75-110); Magnesium 1.9 mg/dL (1.6-2.3); Potassium 3.2 mmol/L (3.4-5.0); Sodium 142 mmol/L (137-145)
[2021-01-01 07:49] LABS: Glucose Point of Care 111 mg/dl (65-105)
[2021-01-01] MEDS: SILVERGEL (ELTA) 45 ML 1 APPLIC TOPICAL (08:21)
[2021-01-01] MEDS: OXYBUTYNIN CHLORIDE 5 MG TABLET PO ×3 (08:24→16:52)
[2021-01-01] MEDS: busPIRone HCL 10 MG TABLET 30 MG PO ×2 (08:24→20:03)
[2021-01-01] MEDS: LITHIUM CARBONATE 300 MG CAPSULE PO ×2 (08:24→20:02)
[2021-01-01] MEDS: ENOXAPARIN 40 MG/0.4 ML SYRINGE SUB-Q (08:25)
[2021-01-01] MEDS: GABAPENTIN 300 MG CAPSULE 600 MG PO ×3 (08:25→16:52)
[2021-01-01] MEDS: amLODIPine BESYLATE 2.5 MG TABLET PO (08:25)
[2021-01-01] MEDS: DULoxetine HCL 60 MG CAPSULE.DR PO (08:25)
[2021-01-01] MEDS: FAMOTIDINE 20 MG/2 ML VIAL IV PUSH ×2 (08:25→20:02)
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
[2021-01-01 11:48] LABS: Glucose Point of Care 135 mg/dl (65-105)
[2021-01-01] MEDS: POTASSIUM CHLORIDE 20 MEQ PACKET (FOR LIQUID) 40 MEQ PO (11:55)
[2021-01-01 14:00] VITALS: BP 101/65; PULSE 87; RESP 26; TEMP 36.8; O2SAT 96
[2021-01-01 16:46] LABS: Glucose Point of Care 100 mg/dl (65-105)
--- NOTE | 2021-01-01 19:32 | PC.NURSE ---
Pt started getting agitated around 1800 and I gave pt ativan 2 mg at 1830. Pt started to yell at night nurse and mom on the phone. Charge nurse notified. Called Lissa Sharp to have her talk to pt. nurses supervisor also notified. Awaiting orders at this time.
[2021-01-01] MEDS: HYDROcodone/acetaminophen (*CRX) 5-325 MG TABLET 1 TAB PO (20:02)
[2021-01-01] MEDS: hydrOXYzine pamoate 25 MG CAPSULE PO (20:50)
[2021-01-01] MEDS: NICOTINE (*PBKC) 21 MG PATCH 1 PATCH TRANSDERM (21:57)
[2021-01-01 22:00] VITALS: BP 130/74; PULSE 68; RESP 18; TEMP 36.3; O2SAT 98
[2021-01-01 23:44] VITALS: BP 131/78
[2021-01-02] MEDS: HYDROcodone/acetaminophen (*CRX) 7.5-325 MG TABLET 1 TAB PO ×5 (00:02→20:29)
[2021-01-02] MEDS: metroNIDAZOLE 500 MG/ISO 100ML 500 MG/100 ML BAG 100 MG IVPB ×2 (00:03→05:13)
[2021-01-02 06:00] VITALS: BP 109/63; PULSE 82; RESP 20; TEMP 36.6; O2SAT 98
[2021-01-02 06:11] LABS: Basophils Percent Auto 0.7 % (0.2-1.2); Eosinophils Absolute Auto 0.5 K/mm3 (0-0.3); Eosinophils Percent Auto 8.4 % (0-4.4); Hematocrit 39.2 % (42.0-52.0); Immature Granulocyte Absolute 0.05 K/mm3 (0.00-0.031); Immature Granulocyte Percent A 0.9 % (0-0.5); Lymphocytes Absolute Auto 1.25 K/mm3 (0.9-3.2); Lymphocytes Percent Auto 21.9 % (18.3-44.2); Mean Corpuscular HGB Conc 33.2 g/dl (32-36); Mean Corpuscular Hemoglobin 29.6 pg (26-34); Mean Corpuscular Volume 89.3 fl (80-100); Mean Platelet Volume 10.2 fl (7.4-10.4); Monocytes Absolute Auto 0.5 K/mm3 (0.1-0.6); Monocytes Percent Auto 8.2 % (2.6-8.5); Neutrophils Absolute Auto 3.4 K/mm3 (1.3-6.7); Neutrophils Percent Auto 59.9 % (45.5-73.1); Platelet Count Result 251 k/mm3 (150-375); Red Blood Count 4.39 M/mm3 (4.6-6.20); Red Cell Distribution Width 13.1 % (11.5-14.5); White Blood Count 5.7 K/mm3 (4.5-10.0)
[2021-01-02 06:23] LABS: Alanine Aminotransferase 168 U/L (4-50); Alkaline Phosphatase 49 U/L (38-126); Anion Gap 6 mmol/L (8-16); Aspartate Amino Transferase 55 U/L (17-59); Bilirubin,Total 0.3 mg/dL (0.2-1.3); Blood Urea Nitrogen 5 mg/dL (9-20); Calcium 8.6 mg/dL (8.4-10.2); Carbon Dioxide 23 mmol/L (22-30); Chloride 112 mmol/L (98-107); Estimated CRCL calculation 142 ml/min; Estimated Glomerular Filt Rate > 60; Glucose 112 mg/dL (75-110); Potassium 3.3 mmol/L (3.4-5.0); Sodium 141 mmol/L (137-145)
[2021-01-02] MEDS: LORazepam INJ (*CRX) 2 MG/ML VIAL IV PUSH ×2 (06:49→14:19)
[2021-01-02] MEDS: AZTREONAM 2 GM in DEXTROSE 5% 100 ML 200 ML IVPB (06:49)
[2021-01-02 08:00] VITALS: PULSE 82; RESP 20; O2SAT 98
[2021-01-02] MEDS: GABAPENTIN 300 MG CAPSULE 600 MG PO ×3 (09:07→18:06)
[2021-01-02] MEDS: amLODIPine BESYLATE 2.5 MG TABLET PO ×2 (09:08→20:34)
[2021-01-02] MEDS: busPIRone HCL 10 MG TABLET 30 MG PO ×2 (09:08→20:34)
[2021-01-02] MEDS: FAMOTIDINE 20 MG/2 ML VIAL IV PUSH ×2 (09:08→20:42)
[2021-01-02] MEDS: OXYBUTYNIN CHLORIDE 5 MG TABLET PO ×3 (09:08→18:06)
[2021-01-02] MEDS: MAGNESIUM OXIDE 400 MG TABLET PO (09:09)
[2021-01-02] MEDS: hydrOXYzine pamoate 25 MG CAPSULE PO (09:11)
[2021-01-02] MEDS: ENOXAPARIN 40 MG/0.4 ML SYRINGE SUB-Q (09:11)
[2021-01-02] MEDS: LITHIUM CARBONATE 300 MG CAPSULE PO ×2 (09:11→20:35)
[2021-01-02] MEDS: DULoxetine HCL 60 MG CAPSULE.DR PO (09:11)
[2021-01-02] MEDS: SILVERGEL (ELTA) 45 ML 1 APPLIC TOPICAL (09:11)
[2021-01-02] MEDS: POTASSIUM CHLORIDE 20 MEQ TABLET 40 MEQ PO (09:21)
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
[2021-01-02 11:49] LABS: Glucose Point of Care 79 mg/dl (65-105)
[2021-01-02 14:00] VITALS: BP 140/80; PULSE 98; RESP 16; TEMP 36.6; O2SAT 100
[2021-01-02 17:39] LABS: Glucose Point of Care 109 mg/dl (65-105)
[2021-01-02] MEDS: NICOTINE (*PBKC) 21 MG PATCH 1 PATCH TRANSDERM (20:30)
[2021-01-02 22:00] VITALS: BP 115/70; PULSE 99; RESP 18; TEMP 36.1; O2SAT 96
[2021-01-02 22:47] LABS: Glucose Point of Care 84 mg/dl (65-105)
[2021-01-03] MEDS: HYDROcodone/acetaminophen (*CRX) 7.5-325 MG TABLET 1 TAB PO ×4 (04:20→20:44)
[2021-01-03 06:00] VITALS: BP 103/64; PULSE 72; RESP 20; TEMP 36.2; O2SAT 98
[2021-01-03 06:08] LABS: Glucose Point of Care 92 mg/dl (65-105)
[2021-01-03 06:22] LABS: Basophils Absolute Auto 0.1 K/mm3 (0.0-0.1); Eosinophils Absolute Auto 0.5 K/mm3 (0-0.3); Eosinophils Percent Auto 9.1 % (0-4.4); Hematocrit 37.9 % (42.0-52.0); Hemoglobin 12.7 g/dL (14.0-18.0); Immature Granulocyte Absolute 0.09 K/mm3 (0.00-0.031); Immature Granulocyte Percent A 1.8 % (0-0.5); Lymphocytes Absolute Auto 1.41 K/mm3 (0.9-3.2); Mean Corpuscular HGB Conc 33.5 g/dl (32-36); Mean Corpuscular Hemoglobin 29.4 pg (26-34); Mean Corpuscular Volume 87.7 fl (80-100); Mean Platelet Volume 9.9 fl (7.4-10.4); Monocytes Absolute Auto 0.5 K/mm3 (0.1-0.6); Monocytes Percent Auto 10.5 % (2.6-8.5); Neutrophils Absolute Auto 2.5 K/mm3 (1.3-6.7); Neutrophils Percent Auto 49.6 % (45.5-73.1); Platelet Count Result 276 k/mm3 (150-375); Red Blood Count 4.32 M/mm3 (4.6-6.20)
[2021-01-03 06:42] LABS: Alanine Aminotransferase 141 U/L (4-50); Alkaline Phosphatase 50 U/L (38-126); Anion Gap 5 mmol/L (8-16); Aspartate Amino Transferase 51 U/L (17-59); Bilirubin,Total 0.2 mg/dL (0.2-1.3); Blood Urea Nitrogen 6 mg/dL (9-20); Calcium 8.6 mg/dL (8.4-10.2); Carbon Dioxide 25 mmol/L (22-30); Chloride 109 mmol/L (98-107); Estimated CRCL calculation 142 ml/min; Estimated Glomerular Filt Rate > 60; Glucose 89 mg/dL (75-110); Potassium 3.7 mmol/L (3.4-5.0); Sodium 139 mmol/L (137-145)
[2021-01-03] MEDS: HYDROcodone/acetaminophen (*CRX) 5-325 MG TABLET 1 TAB PO (08:41)
[2021-01-03] MEDS: DULoxetine HCL 60 MG CAPSULE.DR PO (08:42)
[2021-01-03] MEDS: OXYBUTYNIN CHLORIDE 5 MG TABLET PO ×3 (08:42→19:00)
[2021-01-03] MEDS: amLODIPine BESYLATE 2.5 MG TABLET PO ×2 (08:42→22:57)
[2021-01-03] MEDS: GABAPENTIN 300 MG CAPSULE 600 MG PO ×3 (08:42→19:00)
[2021-01-03] MEDS: busPIRone HCL 10 MG TABLET 30 MG PO ×2 (08:42→22:57)
[2021-01-03] MEDS: MAGNESIUM OXIDE 400 MG TABLET PO (08:42)
[2021-01-03] MEDS: LITHIUM CARBONATE 300 MG CAPSULE PO ×2 (08:42→22:57)
[2021-01-03] MEDS: ENOXAPARIN 40 MG/0.4 ML SYRINGE SUB-Q (08:43)
[2021-01-03] MEDS: SILVERGEL (ELTA) 45 ML 1 APPLIC TOPICAL (08:44)
[2021-01-03] MEDS: FAMOTIDINE 20 MG/2 ML VIAL IV PUSH (09:39)
[2021-01-03] MEDS: LORazepam INJ (*CRX) 2 MG/ML VIAL IV PUSH ×2 (09:45→16:41)
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
[2021-01-03] MEDS: DEXTROSE 5%/0.45% SOD CHL 1,000 ML 75 ML IV CONT (10:37)
--- NOTE | 2021-01-03 11:02 | ECHO_ITS ---
Patient Info Name: Narciso Khalil Age: 40 years : 1980 Gender: Male Ht: 70 in Wt: 199 lbs BSA: 2.13 m2 HR: 98 bpm BP: 128 / 69 mmHg Heart Rhythm: Sinus Rhythm Technical Quality: Good Exam Date: 01/03/2021 12:02 PM Exam Location: [facility] Room: 323 Patient Status: Inpatient Admit Date: 12/29/2020 Staff Ordering Physician: Andrew Alonzo M.A., MD Volunteer Patient Representative: SANJANA Attending Provider: Lyric Rush MD Referring Physician: Jerry BOOGIE; Exam Type: CA echo doppler color flow Study Info Indications - PNUEMONIA HX/O IV DRUG ABUSE R/O ENDOCARDITIA Complete two-dimensional, color flow and Doppler transthoracic echocardiogram is performed. Summary 1. Complete two-dimensional, color flow and Doppler transthoracic echocardiogram is performed. 2. Left ventricular chamber size, wall thickness, systolic and diastolic function are normal with no regional wall motion abnormalities with an estimated ejection fraction of 65-70%. 3. No pulmonary hypertension, estimated pulmonary arterial systolic pressure is 13 mmHg. 4. Normal valve function and structure, with no vegetations seen. 5. Normal sinus rhythm. Left Ventricle Left ventricular chamber dimension is normal. Left ventricular systolic function is normal, estimated at 65-70%. There is no increased left ventricular wall thickness. Left ventricular septal wall motion is normal. The left ventricular diastolic function is normal. Left ventricular chamber size, wall thickness, systolic and diastolic function are normal with no regional wall motion abnormalities with an estimated ejection fraction of 65-70%. Right Ventricle Right ventricular chamber dimension is normal. Right ventricular systolic function is normal. Left Atria Left atrial chamber dimension is normal. Right Atria Right atrial chamber dimension is normal. Aortic Valve The aortic valve is trileaflet. There is no aortic valve sclerosis. There is no aortic valve stenosis. There is no aortic valve regurgitation. Pulmonic Valve The pulmonic valve is normal. There is no pulmonic valve stenosis. There is no pulmonic regurgitation. Mitral Valve The mitral valve has normal leaflets. There is no mitral valve stenosis. There is no mitral valve regurgitation. Tricuspid Valve The tricuspid valve leaflets are normal. There is no significant tricuspid valve stenosis. There is trace tricuspid valve regurgitation. No pulmonary hypertension, estimated pulmonary arterial systolic pressure is 13 mmHg. Pericardium/Pleural The pericardium appears normal. There is no pericardial effusion. Inferior Vena Cava Normal inferior vena cava with >50% collapse upon inspiration consistent with Empty right atrial pressure, 10 mmHg. Aorta The aortic root size at the sinus of Valsalva is normal. The prox ascending aorta size is normal. Left Ventricular Outflow Tract Name Value Normal LVOT 2D LVOT Diameter 2.5 cm LVOT Doppler LVOT Peak Gradient 3 mmHg LVOT Mean Gradient 1 mmHg LVOT VTI
[2021-01-03 11:35] LABS: Glucose Point of Care 175 mg/dl (65-105)
[2021-01-03] MEDS: metroNIDAZOLE 250 MG TABLET 500 MG PO ×2 (13:52→22:57)
[2021-01-03 14:00] VITALS: BP 103/57; PULSE 103; RESP 20; TEMP 36.5; O2SAT 98
[2021-01-03 20:00] VITALS: PULSE 81; RESP 18; O2SAT 100
[2021-01-03 22:00] VITALS: BP 131/86; PULSE 81; RESP 18; TEMP 35.9; O2SAT 100
[2021-01-03] MEDS: LORazepam (*CRX) 1 MG TABLET 2 MG PO (22:57)
[2021-01-03] MEDS: NICOTINE (*PBKC) 21 MG PATCH 1 PATCH TRANSDERM (22:58)
[2021-01-04] MEDS: HYDROcodone/acetaminophen (*CRX) 7.5-325 MG TABLET 1 TAB PO ×4 (05:07→22:41)
[2021-01-04] MEDS: metroNIDAZOLE 250 MG TABLET 500 MG PO ×3 (05:08→23:05)
[2021-01-04] MEDS: LORazepam (*CRX) 1 MG TABLET 2 MG PO ×3 (05:08→22:18)
[2021-01-04 06:00] VITALS: BP 138/85; PULSE 88; RESP 18; TEMP 35.9; O2SAT 99
[2021-01-04] MEDS: busPIRone HCL 10 MG TABLET 30 MG PO ×2 (09:50→21:00)
[2021-01-04] MEDS: OXYBUTYNIN CHLORIDE 5 MG TABLET PO ×3 (09:51→17:40)
[2021-01-04] MEDS: amLODIPine BESYLATE 2.5 MG TABLET PO ×2 (09:51→21:00)
[2021-01-04] MEDS: GABAPENTIN 300 MG CAPSULE 600 MG PO ×3 (09:51→17:40)
[2021-01-04] MEDS: ENOXAPARIN 40 MG/0.4 ML SYRINGE SUB-Q (09:52)
[2021-01-04] MEDS: MAGNESIUM OXIDE 400 MG TABLET PO (09:52)
[2021-01-04] MEDS: LITHIUM CARBONATE 300 MG CAPSULE PO ×2 (09:52→21:00)
[2021-01-04] MEDS: DULoxetine HCL 60 MG CAPSULE.DR PO (09:52)
[2021-01-04] MEDS: FAMOTIDINE 20 MG/2 ML VIAL IV PUSH ×2 (09:53→21:00)
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
[2021-01-04] MEDS: SILVERGEL (ELTA) 45 ML 1 APPLIC TOPICAL (10:03)
--- NOTE | 2021-01-04 10:45 | PCNWS ---
Weekly nutritional screen. Patient is tolerating current diet-regular with adequate zozfpt-82-137% of meals. No nutritional needs at this time.
[2021-01-04] MEDS: FUROSEMIDE INJ 40 MG/4 ML VIAL 20 MG IM (11:15)
[2021-01-04 11:44] LABS: Vancomycin Trough < 5.0 ug/mL (10.0-20.0)
--- NOTE | 2021-01-04 13:06 | PC.NURSE ---
Patient returned from PACU at 1300.
[2021-01-04 14:00] VITALS: BP 121/76; PULSE 100; RESP 20; TEMP 36.6; O2SAT 99
[2021-01-04] MEDS: NICOTINE (*PBKC) 21 MG PATCH 1 PATCH TRANSDERM (21:05)
[2021-01-04 21:58] VITALS: BP 149/75; PULSE 113; RESP 16; TEMP 35.7; O2SAT 96
[2021-01-05] MEDS: HYDROcodone/acetaminophen (*CRX) 7.5-325 MG TABLET 1 TAB PO ×4 (04:02→22:02)
[2021-01-05] MEDS: LORazepam (*CRX) 1 MG TABLET 2 MG PO ×4 (04:45→22:03)
[2021-01-05] MEDS: metroNIDAZOLE 250 MG TABLET 500 MG PO ×3 (05:27→21:17)
[2021-01-05 06:00] VITALS: BP 134/80; PULSE 74; RESP 18; TEMP 35.9; O2SAT 98
[2021-01-05 08:11] LABS: Estimated CRCL calculation 142 ml/min; Estimated Glomerular Filt Rate > 60
[2021-01-05] MEDS: ENOXAPARIN 40 MG/0.4 ML SYRINGE SUB-Q (08:33)
[2021-01-05] MEDS: LITHIUM CARBONATE 300 MG CAPSULE PO (08:34)
[2021-01-05] MEDS: busPIRone HCL 10 MG TABLET 30 MG PO ×2 (08:34→21:16)
[2021-01-05] MEDS: DULoxetine HCL 60 MG CAPSULE.DR PO (08:34)
[2021-01-05] MEDS: GABAPENTIN 300 MG CAPSULE 600 MG PO ×3 (08:34→16:28)
[2021-01-05] MEDS: amLODIPine BESYLATE 2.5 MG TABLET PO ×2 (08:34→21:16)
[2021-01-05] MEDS: OXYBUTYNIN CHLORIDE 5 MG TABLET PO ×3 (08:35→16:30)
[2021-01-05] MEDS: SILVERGEL (ELTA) 45 ML 1 APPLIC TOPICAL (08:35)
[2021-01-05] MEDS: FAMOTIDINE 20 MG/2 ML VIAL IV PUSH ×2 (08:35→21:17)
[2021-01-05] MEDS: MAGNESIUM OXIDE 400 MG TABLET PO (08:35)
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
[2021-01-05 09:18] LABS: Lithium 1.7 mmol/L (0.6-1.2)
[2021-01-05 09:23] LABS: Basophils Absolute Auto 0.1 K/mm3 (0.0-0.1); Basophils Percent Auto 0.8 % (0.2-1.2); Eosinophils Absolute Auto 0.4 K/mm3 (0-0.3); Eosinophils Percent Auto 6.5 % (0-4.4); Hematocrit 41.6 % (42.0-52.0); Hemoglobin 13.9 g/dL (14.0-18.0); Immature Granulocyte Absolute 0.15 K/mm3 (0.00-0.031); Immature Granulocyte Percent A 2.4 % (0-0.5); Mean Corpuscular HGB Conc 33.4 g/dl (32-36); Mean Corpuscular Hemoglobin 29.5 pg (26-34); Mean Corpuscular Volume 88.3 fl (80-100); Mean Platelet Volume 9.8 fl (7.4-10.4); Monocytes Absolute Auto 0.5 K/mm3 (0.1-0.6); Monocytes Percent Auto 7.1 % (2.6-8.5); Neutrophils Absolute Auto 3.5 K/mm3 (1.3-6.7); Neutrophils Percent Auto 56.2 % (45.5-73.1); Platelet Count Result 319 k/mm3 (150-375); Red Blood Count 4.71 M/mm3 (4.6-6.20); Red Cell Distribution Width 13.2 % (11.5-14.5); White Blood Count 6.3 K/mm3 (4.5-10.0)
[2021-01-05 09:28] LABS: Alanine Aminotransferase 98 U/L (4-50); Albumin Level 3.5 g/dL (3.5-5.1); Alkaline Phosphatase 51 U/L (38-126); Anion Gap 8 mmol/L (8-16); Aspartate Amino Transferase 43 U/L (17-59); Bilirubin,Total 0.2 mg/dL (0.2-1.3); Blood Urea Nitrogen 8 mg/dL (9-20); Calcium 9.1 mg/dL (8.4-10.2); Carbon Dioxide 27 mmol/L (22-30); Chloride 105 mmol/L (98-107); Estimated CRCL calculation 142 ml/min; Estimated Glomerular Filt Rate > 60; Glucose 98 mg/dL (75-110); Potassium 4.4 mmol/L (3.4-5.0); Sodium 140 mmol/L (137-145)
[2021-01-05] MEDS: SODIUM CHLORIDE 0.9% IV 1,000 ML 75 ML IV CONT (09:57)
[2021-01-05 14:00] VITALS: BP 106/73; PULSE 96; RESP 20; TEMP 35.7; O2SAT 100
[2021-01-05] MEDS: NICOTINE (*PBKC) 21 MG PATCH 1 PATCH TRANSDERM (21:17)
[2021-01-05 22:00] VITALS: BP 146/74; PULSE 102; RESP 16; TEMP 35.9; O2SAT 96
--- NOTE | 2021-01-06 01:42 | PC.NURSE ---
Patient refused lab draw this evening for vancomycin trough. I explained to the patient the 0100 dose of vancomycin could not be given without accurate trough levels. He stated in understood. DR Louise was notified by telephone and confirmed the vancomycin could not be given without the lab draw.
[2021-01-06] MEDS: SODIUM CHLORIDE 0.9% IV 1,000 ML 75 ML IV CONT ×2 (04:10→23:06)
[2021-01-06] MEDS: LORazepam INJ (*CRX) 2 MG/ML VIAL IV PUSH ×5 (04:20→22:52)
[2021-01-06] MEDS: HYDROcodone/acetaminophen (*CRX) 7.5-325 MG TABLET 1 TAB PO ×4 (04:21→21:20)
[2021-01-06] MEDS: metroNIDAZOLE 250 MG TABLET 500 MG PO ×3 (05:31→21:21)
[2021-01-06 06:00] VITALS: BP 132/75; PULSE 86; RESP 16; TEMP 36.6; O2SAT 99
[2021-01-06 08:00] VITALS: PULSE 86; RESP 16; O2SAT 99
[2021-01-06 08:28] LABS: Basophils Absolute Auto 0.1 K/mm3 (0.0-0.1); Eosinophils Absolute Auto 0.4 K/mm3 (0-0.3); Eosinophils Percent Auto 6.6 % (0-4.4); Hematocrit 40.4 % (42.0-52.0); Hemoglobin 13.5 g/dL (14.0-18.0); Immature Granulocyte Percent A 1.7 % (0-0.5); Lymphocytes Absolute Auto 1.56 K/mm3 (0.9-3.2); Lymphocytes Percent Auto 25.9 % (18.3-44.2); Mean Corpuscular HGB Conc 33.4 g/dl (32-36); Mean Corpuscular Hemoglobin 29.2 pg (26-34); Mean Corpuscular Volume 87.4 fl (80-100); Mean Platelet Volume 9.6 fl (7.4-10.4); Monocytes Absolute Auto 0.4 K/mm3 (0.1-0.6); Monocytes Percent Auto 6.5 % (2.6-8.5); Neutrophils Absolute Auto 3.5 K/mm3 (1.3-6.7); Neutrophils Percent Auto 58.3 % (45.5-73.1); Platelet Count Result 285 k/mm3 (150-375); Red Blood Count 4.62 M/mm3 (4.6-6.20)
[2021-01-06 08:43] LABS: Alanine Aminotransferase 73 U/L (4-50); Albumin Level 3.3 g/dL (3.5-5.1); Alkaline Phosphatase 46 U/L (38-126); Anion Gap 6 mmol/L (8-16); Aspartate Amino Transferase 35 U/L (17-59); Bilirubin,Total 0.2 mg/dL (0.2-1.3); Blood Urea Nitrogen 8 mg/dL (9-20); Carbon Dioxide 24 mmol/L (22-30); Chloride 108 mmol/L (98-107); Estimated CRCL calculation 142 ml/min; Estimated Glomerular Filt Rate > 60; Glucose 100 mg/dL (75-110); Potassium 4.2 mmol/L (3.4-5.0); Sodium 138 mmol/L (137-145)
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
[2021-01-06] MEDS: GABAPENTIN 300 MG CAPSULE 600 MG PO ×3 (09:54→17:36)
[2021-01-06] MEDS: MAGNESIUM OXIDE 400 MG TABLET PO (10:42)
[2021-01-06] MEDS: FAMOTIDINE 20 MG/2 ML VIAL IV PUSH ×2 (10:43→21:21)
[2021-01-06] MEDS: OXYBUTYNIN CHLORIDE 5 MG TABLET PO ×3 (10:43→17:37)
[2021-01-06] MEDS: DULoxetine HCL 60 MG CAPSULE.DR PO (10:43)
[2021-01-06] MEDS: ENOXAPARIN 40 MG/0.4 ML SYRINGE SUB-Q (10:43)
[2021-01-06] MEDS: amLODIPine BESYLATE 2.5 MG TABLET PO ×2 (10:43→21:21)
[2021-01-06] MEDS: busPIRone HCL 10 MG TABLET 30 MG PO (10:43)
[2021-01-06] MEDS: SILVERGEL (ELTA) 45 ML 1 APPLIC TOPICAL (10:44)
[2021-01-06 14:00] VITALS: BP 138/79; PULSE 78; RESP 20; TEMP 36.5; O2SAT 100
[2021-01-06] MEDS: LINEZOLID 600 MG TABLET PO (17:36)
[2021-01-06 21:17] VITALS: BP 115/75; PULSE 102; RESP 18; TEMP 36.4; O2SAT 96
[2021-01-06] MEDS: NICOTINE (*PBKC) 21 MG PATCH 1 PATCH TRANSDERM (21:20)
[2021-01-07] MEDS: HYDROcodone/acetaminophen (*CRX) 7.5-325 MG TABLET 1 TAB PO ×3 (01:13→10:27)
[2021-01-07] MEDS: LORazepam INJ (*CRX) 2 MG/ML VIAL IV PUSH ×2 (03:19→07:53)
[2021-01-07] MEDS: metroNIDAZOLE 250 MG TABLET 500 MG PO (05:15)
[2021-01-07 05:36] VITALS: BP 129/79; PULSE 91; RESP 18; TEMP 36.3; O2SAT 97
[2021-01-07 08:00] VITALS: PULSE 91; RESP 18; O2SAT 97
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
[2021-01-07 09:49] LABS: Basophils Percent Auto 0.8 % (0.2-1.2); Eosinophils Absolute Auto 0.3 K/mm3 (0-0.3); Eosinophils Percent Auto 5.9 % (0-4.4); Hematocrit 41.1 % (42.0-52.0); Hemoglobin 13.7 g/dL (14.0-18.0); Immature Granulocyte Absolute 0.05 K/mm3 (0.00-0.031); Lymphocytes Absolute Auto 1.45 K/mm3 (0.9-3.2); Lymphocytes Percent Auto 27.8 % (18.3-44.2); Mean Corpuscular HGB Conc 33.3 g/dl (32-36); Mean Corpuscular Hemoglobin 29.3 pg (26-34); Mean Platelet Volume 9.4 fl (7.4-10.4); Monocytes Absolute Auto 0.4 K/mm3 (0.1-0.6); Monocytes Percent Auto 7.9 % (2.6-8.5); Neutrophils Percent Auto 56.6 % (45.5-73.1); Platelet Count Result 327 k/mm3 (150-375); Red Blood Count 4.67 M/mm3 (4.6-6.20); Red Cell Distribution Width 13.1 % (11.5-14.5); White Blood Count 5.2 K/mm3 (4.5-10.0)
[2021-01-07 09:58] LABS: Alanine Aminotransferase 69 U/L (4-50); Albumin Level 3.6 g/dL (3.5-5.1); Alkaline Phosphatase 50 U/L (38-126); Anion Gap 8 mmol/L (8-16); Aspartate Amino Transferase 36 U/L (17-59); Bilirubin,Total 0.2 mg/dL (0.2-1.3); Blood Urea Nitrogen 8 mg/dL (9-20); Calcium 9.2 mg/dL (8.4-10.2); Carbon Dioxide 25 mmol/L (22-30); Chloride 106 mmol/L (98-107); Estimated CRCL calculation 142 ml/min; Estimated Glomerular Filt Rate > 60; Glucose 94 mg/dL (75-110); Potassium 4.2 mmol/L (3.4-5.0); Sodium 139 mmol/L (137-145)
[2021-01-07] MEDS: GABAPENTIN 300 MG CAPSULE 600 MG PO (10:28)
[2021-01-07] MEDS: FAMOTIDINE 20 MG/2 ML VIAL IV PUSH (10:28)
[2021-01-07] MEDS: amLODIPine BESYLATE 2.5 MG TABLET PO (10:28)
[2021-01-07] MEDS: LINEZOLID 600 MG TABLET PO (10:29)
[2021-01-07] MEDS: OXYBUTYNIN CHLORIDE 5 MG TABLET PO (10:29)
[2021-01-07] MEDS: SILVERGEL (ELTA) 45 ML 1 APPLIC TOPICAL (10:29)
[2021-01-07] MEDS: MAGNESIUM OXIDE 400 MG TABLET PO (10:29)
--- NOTE | 2021-01-07 11:28 | PC.NURSE ---
Patient wanting to leave against medical advice despite education. Provider, housekeeper/laundry assistant, and care coordination notified.
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
== END 2021-01-07 11:30 | disposition left against medical advice (07) | DRG 871 ==
LOC: ANHED 07:13 → ANHICU 16:54 → ANH3MEDSUR 01-01 09:47 → ANHICU 01-10 09:29
PROVIDERS: Emergency Medicine; Internal Medicine; Admitting Provider Family Medicine; Emergency Provider Emergency Medicine; PCP Nurse Practitioner; Visit Provider Internal Medicine
DX: A41.9 Sepsis, unspecified organism (principal); J69.0 Pneumonitis due to inhalation of food and vomit; G92 Toxic encephalopathy; J96.02 Acute respiratory failure with hypercapnia; J96.01 Acute respiratory failure with hypoxia; J15.212 Pneumonia due to Methicillin resistant Staphylococcus aureus; G82.20 Paraplegia, unspecified; T50.911A Poisoning by multiple unspecified drugs, medicaments and biological substances, accidental (unintentional), initial encounter; Z20.822 Contact with and (suspected) exposure to COVID-19; R82.5 Elevated urine levels of drugs, medicaments and biological substances; F15.10 Other stimulant abuse, uncomplicated; F14.10 Cocaine abuse, uncomplicated; F12.10 Cannabis abuse, uncomplicated; Z18.89 Other specified retained foreign body fragments; Z88.0 Allergy status to penicillin; Z99.3 Dependence on wheelchair; M47.812 Spondylosis without myelopathy or radiculopathy, cervical region; R65.20 Severe sepsis without septic shock; F41.8 Other specified anxiety disorders; F32.9 Major depressive disorder, single episode, unspecified; B18.2 Chronic viral hepatitis C; Y92.009 Unspecified place in unspecified non-institutional (private) residence as the place of occurrence of the external cause; G89.29 Other chronic pain; R51.9 Headache, unspecified; M79.604 Pain in right leg; R73.03 Prediabetes
CPT/HCPCS: 31500; 36415; 36600; 51702; 70450; 71045; 72125; 80053; 80178; 80202; 80307; 81001; 82140; 82375; 82550; 82565; 82805; 82948; 83050; 83605; 83735; 84100; 84443; 84478; 85025; 85055; 85610; 85730; 87040; 87070; 87086; 87088; 87147; 87186; 87205; 93005; 93306; 96361; 96374; 96375; 99291; A9270; C9803; J0330; J1650; J1940; J2060; J2250; J2704; J3010; J3370; J7030; J7121; U0003; U0005

== ENCOUNTER 2021-01-08 09:34 | Inpatient (IN) | payer MEDICARE, MEDICAID, SELFPAY ==
[2021-01-08] VITALS (11 sets, daily range): BP systolic 104–151; BP diastolic 67–93; PULSE 62–120; RESP 13–100; TEMP 36.1–36.9; O2SAT 24–100; BMI 25.6
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
--- NOTE | 2021-01-08 09:51 | ECG_ITS ---
Measurements Intervals [place] Rate: 103 P: 48 CO: 144 QRS: 26 QRSD: 87 T: 44 QT: 325 QTc: 427 Interpretive Statements SINUS TACHYCARDIA POSSIBLE LEFT ATRIAL ENLARGEMENT BASELINE ARTIFACT- II, III, AVL, AVF, V4 BORDERLINE ECG Electronically Signed On 01-08-2021 13:26:43 CDT by Steve Boyle D.O.
--- NOTE | 2021-01-08 10:00 | PC.NURSE ---
2RN'S ATTEMPTED IV ACCESS WITH NO SUCCESS. WILL HAVE ANOTHER RN ATTEMPT WHO IS ULTRASOUND TRAINED.
[2021-01-08 10:11] LABS: Basophils Absolute Auto 0.1 K/mm3 (0.0-0.1); Basophils Percent Auto 0.4 % (0.2-1.2); Eosinophils Absolute Auto 0.1 K/mm3 (0-0.3); Eosinophils Percent Auto 0.4 % (0-4.4); Hematocrit 47.1 % (42.0-52.0); Hemoglobin 16.4 g/dL (14.0-18.0); Immature Granulocyte Absolute 0.07 K/mm3 (0.00-0.031); Immature Granulocyte Percent A 0.5 % (0-0.5); Lymphocytes Absolute Auto 1.55 K/mm3 (0.9-3.2); Lymphocytes Percent Auto 11.3 % (18.3-44.2); Mean Corpuscular HGB Conc 34.8 g/dl (32-36); Mean Corpuscular Hemoglobin 29.4 pg (26-34); Mean Corpuscular Volume 84.4 fl (80-100); Mean Platelet Volume 9.4 fl (7.4-10.4); Monocytes Absolute Auto 0.8 K/mm3 (0.1-0.6); Monocytes Percent Auto 5.5 % (2.6-8.5); Neutrophils Absolute Auto 11.2 K/mm3 (1.3-6.7); Neutrophils Percent Auto 81.9 % (45.5-73.1); Platelet Count Result 494 k/mm3 (150-375); Red Blood Count 5.58 M/mm3 (4.6-6.20); Red Cell Distribution Width 12.8 % (11.5-14.5); White Blood Count 13.7 K/mm3 (4.5-10.0)
[2021-01-08 10:53] LABS: Add Urine Microscopic? YES; Appearance Urine Clear (Clear); Bacteria Urine Trace /hpf; Bilirubin Urine Negative (Negative); Blood Urine Negative (Negative); Color Urine Yellow (Yellow); Glucose Urine UA Negative (Negative); Ketones Urine Trace mg/dL (Negative); Leukocyte Esterase Ur 1+ LEU/UL (Negative); Mucus Urine Rare /lpf; Nitrate Urine Negative (Negative); Protein Urine 1+ mg/dL (Negative); RBC Urine 0-2 /hpf (0-2); Specific Grav Ur 1.013 (1.001-1.035); Squamous Epithelial Cell Urine Moderate /hpf (Few); Urobilinogen Urine Negative mg/dL (<2.0); WBC Urine 0-3 /hpf
[2021-01-08 11:05] LABS: Amphetamine Screen Urine Negative (Negative); Barbiturate Screen Urine Negative (Negative); Benzodiazepines Screen Urine Negative (Negative); Cannabinoid Screen Urine Positive (Negative); Cocaine Screen Urine Negative (Negative); Methadone Screen Urine Negative (Negative); Opiate Screen Urine Positive (Negative); Phencyclidine Screen Urine Negative (Negative)
[2021-01-08] MEDS: LACTATED RINGERS 1,000 ML 999 ML IV CONT ×3 (12:29→16:49)
[2021-01-08] MEDS: PANTOPRAZOLE SODIUM IV 40 MG VIAL IV PUSH (12:32)
[2021-01-08] MEDS: LORazepam INJ (*CRX) 2 MG/ML VIAL 1 MG IV PUSH (12:32)
[2021-01-08 12:37] LABS: Lactic Acid Reflex 2.9 mmol/L (0.7-2.1)
[2021-01-08 12:38] LABS: Creatine Kinase 221 U/L (55-170)
[2021-01-08 12:41] LABS: Alanine Aminotransferase 73 U/L (4-50); Albumin Level 4.7 g/dL (3.5-5.1); Alkaline Phosphatase 83 U/L (38-126); Anion Gap 16 mmol/L (8-16); Aspartate Amino Transferase 49 U/L (17-59); Bilirubin,Total 0.7 mg/dL (0.2-1.3); Blood Urea Nitrogen 9 mg/dL (9-20); CRP 0.5 mg/dL (<1.0); Calcium 10.4 mg/dL (8.4-10.2); Carbon Dioxide 24 mmol/L (22-30); Chloride 99 mmol/L (98-107); Estimated CRCL calculation 151 ml/min; Estimated Glomerular Filt Rate > 60; Glucose 105 mg/dL (75-110); Lipase 39 U/L (23-300); Potassium 3.3 mmol/L (3.4-5.0); Sodium 139 mmol/L (137-145)
[2021-01-08 12:42] LABS: INR 0.9
[2021-01-08 12:44] LABS: Partial Thromboplastin Time 24.4 SECONDS (22.3-36.8)
[2021-01-08 12:50] LABS: Troponin I < 0.012 ng/mL (0.000-0.034)
[2021-01-08 13:53] LABS: Lithium < 0.2 mmol/L (0.6-1.2)
[2021-01-08] MEDS: ONDANSETRON INJ 4 MG/2 ML VIAL IV PUSH (14:22)
[2021-01-08 15:26] LABS: Reflex Lactic Acid Yes or No Add Lactic
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
--- NOTE | 2021-01-08 16:45 | PC.NURSE ---
UNABLE TO OBTAIN 2ND BLOOD CULTURES AND LACTIC ACID REFLEX AFTER MULTIPLE ATTEMPTS. JEFF ABDULLAHI HOSPITALIST MADE AWARE AND OK WITH NOT OBTAINING SAMPLES FOR NOW AND STARTING THE ABX.
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
[2021-01-08] MEDS: LINEZOLID 600 MG/300 ML 600 MG/300 ML SOLN 300 MG IVPB (16:49)
--- NOTE | 2021-01-08 17:10 | PC.NURSE ---
IV OCCLUDED AND WHEN ATTEMPTED TO FLUSH IV THE SITE INFILTRATED.JEFF ABDULLAHI HOSPITALIST MADE AWARE AND OK WITH SENDING PT UPSTAIRS AT THIS POINT AND THEY WILL DEAL WITH IV ACCESS WHILE INPATIENT SINCE HE IS SUCH A DIFFICULT STICK.
--- NOTE | 2021-01-08 17:48 | PC.NURSE ---
This patient, Narciso Khalil, was admitted to 3 [facility] Surg Room 307-01. Patient/family oriented to hospital policies and general routines including ID bracelet, bed and alarms, visiting hours, pain management, procedures, bathroom and other care routines, personal items, smoking policy, room service/diet, and visiting hours.Report received from Valeria VIVEROS Information on how to activate the Rapid Response Team has been discussed. Patient/Family are encouraged to report perceived risks to care and to ask questions if they do not understand what they are told or what they should do.
[2021-01-08] MEDS: ALPRAZolam (*CRX) 0.5 MG TABLET PO (21:03)
[2021-01-09] MEDS: metroNIDAZOLE 250 MG TABLET 500 MG PO ×3 (00:39→17:04)
[2021-01-09] MEDS: ALPRAZolam (*CRX) 0.5 MG TABLET PO ×3 (03:25→18:37)
[2021-01-09 03:58] VITALS: BP 129/87; PULSE 83; RESP 18; TEMP 36.7; O2SAT 100
[2021-01-09 06:06] LABS: Basophils Percent Auto 0.5 % (0.2-1.2); Eosinophils Absolute Auto 0.1 K/mm3 (0-0.3); Eosinophils Percent Auto 1.4 % (0-4.4); Hematocrit 46.2 % (42.0-52.0); Hemoglobin 15.6 g/dL (14.0-18.0); Immature Granulocyte Absolute 0.03 K/mm3 (0.00-0.031); Immature Granulocyte Percent A 0.4 % (0-0.5); Lymphocytes Absolute Auto 1.93 K/mm3 (0.9-3.2); Lymphocytes Percent Auto 24.9 % (18.3-44.2); Mean Corpuscular HGB Conc 33.8 g/dl (32-36); Mean Corpuscular Hemoglobin 29.5 pg (26-34); Mean Corpuscular Volume 87.5 fl (80-100); Mean Platelet Volume 9.2 fl (7.4-10.4); Monocytes Absolute Auto 0.6 K/mm3 (0.1-0.6); Monocytes Percent Auto 7.5 % (2.6-8.5); Neutrophils Absolute Auto 5.1 K/mm3 (1.3-6.7); Neutrophils Percent Auto 65.3 % (45.5-73.1); Platelet Count Result 369 k/mm3 (150-375); Red Blood Count 5.28 M/mm3 (4.6-6.20); Red Cell Distribution Width 13.2 % (11.5-14.5); White Blood Count 7.7 K/mm3 (4.5-10.0)
[2021-01-09 06:16] LABS: Alanine Aminotransferase 65 U/L (4-50); Albumin Level 4.2 g/dL (3.5-5.1); Alkaline Phosphatase 63 U/L (38-126); Anion Gap 12 mmol/L (8-16); Aspartate Amino Transferase 58 U/L (17-59); Bilirubin,Total 0.6 mg/dL (0.2-1.3); Blood Urea Nitrogen 6 mg/dL (9-20); Calcium 9.7 mg/dL (8.4-10.2); Carbon Dioxide 23 mmol/L (22-30); Chloride 104 mmol/L (98-107); Estimated CRCL calculation 151 ml/min; Estimated Glomerular Filt Rate > 60; Glucose 91 mg/dL (75-110); Lactic Acid 1.2 mmol/L (0.7-2.1); Potassium 3.8 mmol/L (3.4-5.0); Sodium 139 mmol/L (137-145)
[2021-01-09] MEDS: LINEZOLID 600 MG TABLET PO ×2 (08:33→19:35)
[2021-01-09] MEDS: ONDANSETRON HCL ODT 4 MG TABLET PO (11:03)
[2021-01-09] MEDS: PANTOPRAZOLE 40 MG TABLET PO (11:04)
[2021-01-09 11:23] VITALS: O2SAT 100
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
[2021-01-09 14:00] VITALS: BP 121/81; PULSE 90; RESP 14; TEMP 36.2; O2SAT 100
[2021-01-09] MEDS: ALPRAZolam (*CRX) 0.25 MG TABLET PO (14:32)
[2021-01-09] MEDS: GABAPENTIN 300 MG CAPSULE 600 MG PO ×2 (14:33→17:03)
[2021-01-09] MEDS: OXYBUTYNIN CHLORIDE 5 MG TABLET PO ×2 (14:33→17:03)
[2021-01-09] MEDS: amLODIPine BESYLATE 2.5 MG TABLET PO (17:03)
[2021-01-09] MEDS: LITHIUM CARBONATE 300 MG CAPSULE PO (19:35)
[2021-01-09 20:00] VITALS: PULSE 90; RESP 14; O2SAT 100
[2021-01-09 21:52] VITALS: BP 110/69; PULSE 90; RESP 18; TEMP 36.8; O2SAT 97
[2021-01-10] MEDS: ONDANSETRON HCL ODT 4 MG TABLET PO ×2 (00:41→12:01)
[2021-01-10] MEDS: metroNIDAZOLE 250 MG TABLET 500 MG PO ×4 (00:59→18:27)
[2021-01-10] MEDS: ACETAMINOPHEN 325 MG TABLET 650 MG PO (00:59)
[2021-01-10] MEDS: ALPRAZolam (*CRX) 0.5 MG TABLET PO ×3 (02:19→17:56)
[2021-01-10 05:47] VITALS: BP 112/65; PULSE 77; RESP 18; TEMP 36.1; O2SAT 98
[2021-01-10] MEDS: ENOXAPARIN 40 MG/0.4 ML SYRINGE SUB-Q (08:15)
[2021-01-10] MEDS: amLODIPine BESYLATE 2.5 MG TABLET PO ×2 (08:15→17:55)
[2021-01-10] MEDS: LINEZOLID 600 MG TABLET PO ×2 (08:15→21:24)
[2021-01-10] MEDS: GABAPENTIN 300 MG CAPSULE 600 MG PO ×3 (08:15→17:55)
[2021-01-10] MEDS: LITHIUM CARBONATE 300 MG CAPSULE PO ×2 (08:16→21:24)
[2021-01-10] MEDS: PANTOPRAZOLE 40 MG TABLET PO (08:16)
[2021-01-10] MEDS: OXYBUTYNIN CHLORIDE 5 MG TABLET PO ×3 (08:16→17:56)
[2021-01-10 09:29] LABS: Basophils Absolute Auto 0.1 K/mm3 (0.0-0.1); Basophils Percent Auto 0.9 % (0.2-1.2); Eosinophils Absolute Auto 0.1 K/mm3 (0-0.3); Eosinophils Percent Auto 2.2 % (0-4.4); Hematocrit 42.1 % (42.0-52.0); Hemoglobin 14.3 g/dL (14.0-18.0); Immature Granulocyte Absolute 0.02 K/mm3 (0.00-0.031); Immature Granulocyte Percent A 0.4 % (0-0.5); Lymphocytes Absolute Auto 1.09 K/mm3 (0.9-3.2); Lymphocytes Percent Auto 20.1 % (18.3-44.2); Mean Corpuscular Hemoglobin 29.9 pg (26-34); Mean Corpuscular Volume 87.9 fl (80-100); Mean Platelet Volume 9.4 fl (7.4-10.4); Monocytes Absolute Auto 0.4 K/mm3 (0.1-0.6); Monocytes Percent Auto 7.6 % (2.6-8.5); Neutrophils Absolute Auto 3.7 K/mm3 (1.3-6.7); Neutrophils Percent Auto 68.8 % (45.5-73.1); Platelet Count Result 315 k/mm3 (150-375); Red Blood Count 4.79 M/mm3 (4.6-6.20); Red Cell Distribution Width 13.1 % (11.5-14.5); White Blood Count 5.4 K/mm3 (4.5-10.0)
[2021-01-10 09:38] LABS: Anion Gap 8 mmol/L (8-16); Blood Urea Nitrogen 8 mg/dL (9-20); Calcium 9.5 mg/dL (8.4-10.2); Carbon Dioxide 25 mmol/L (22-30); Chloride 104 mmol/L (98-107); Estimated CRCL calculation 131 ml/min; Estimated Glomerular Filt Rate > 60; Glucose 99 mg/dL (75-110); Magnesium 2.1 mg/dL (1.6-2.3); Potassium 4.1 mmol/L (3.4-5.0); Sodium 137 mmol/L (137-145)
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
[2021-01-10 14:00] VITALS: BP 102/55; PULSE 78; RESP 16; TEMP 36.3; O2SAT 98
[2021-01-10] MEDS: NICOTINE (*PBKC) 14 MG PATCH 1 PATCH TRANSDERM (18:26)
[2021-01-10 20:38] VITALS: O2SAT 98
[2021-01-10 22:00] VITALS: BP 122/72; PULSE 84; RESP 18; TEMP 36.4; O2SAT 100
[2021-01-11] MEDS: ALPRAZolam (*CRX) 0.5 MG TABLET PO ×2 (02:16→10:16)
[2021-01-11] MEDS: ACETAMINOPHEN 325 MG TABLET 650 MG PO ×3 (02:38→11:52)
[2021-01-11 06:00] VITALS: BP 100/60; PULSE 79; RESP 20; TEMP 36.1; O2SAT 97
[2021-01-11] MEDS: OXYBUTYNIN CHLORIDE 5 MG TABLET PO ×2 (08:38→13:25)
[2021-01-11] MEDS: LITHIUM CARBONATE 300 MG CAPSULE PO (08:38)
[2021-01-11] MEDS: GABAPENTIN 300 MG CAPSULE 600 MG PO ×2 (08:38→13:24)
[2021-01-11] MEDS: ENOXAPARIN 40 MG/0.4 ML SYRINGE SUB-Q (08:39)
[2021-01-11] MEDS: amLODIPine BESYLATE 2.5 MG TABLET PO (08:39)
[2021-01-11] MEDS: NICOTINE (*PBKC) 14 MG PATCH 1 PATCH TRANSDERM (08:39)
[2021-01-11] MEDS: PANTOPRAZOLE 40 MG TABLET PO (08:39)
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
--- NOTE | 2021-01-14 13:25 | PC.NURSE ---
Blood cx negative.
== END 2021-01-11 13:39 | disposition home or self-care (01) | DRG 178 ==
LOC: ANHED 15:48 → ANH3MEDSUR 01-09 08:53
PROVIDERS: Emergency Medicine Emergency Medical Services; Admitting Provider Family Medicine; Emergency Provider Emergency Medicine; PCP Nurse Practitioner; Visit Provider Physician Assistant
DX: J15.212 Pneumonia due to Methicillin resistant Staphylococcus aureus (principal); G82.20 Paraplegia, unspecified; F41.8 Other specified anxiety disorders; R11.2 Nausea with vomiting, unspecified; E86.0 Dehydration; F19.10 Other psychoactive substance abuse, uncomplicated; F17.210 Nicotine dependence, cigarettes, uncomplicated; B19.20 Unspecified viral hepatitis C without hepatic coma; Z18.10 Retained metal fragments, unspecified; Z79.899 Other long term (current) drug therapy; Z99.3 Dependence on wheelchair
CPT/HCPCS: 36415; 51701; 71045; 74177; 80048; 80053; 80178; 80307; 81001; 82550; 83605; 83690; 83735; 84484; 85025; 85610; 85730; 86140; 87040; 93005; 96361; 96365; 96375; 99285; A9270; C9113; J1650; J2020; J2060; J2405; J7120; Q9967